=== PATIENT | female | born 1985 | race Caucasian/White ===

== ENCOUNTER 2019-09-15 13:22 | Emergency (ER) | payer BC ==
[~2019-09-15] VITALS: Ht 175.3 cm; Wt 131.1 kg
[2019-09-15 14:12] LABS: BASOPHILS # (AUTO) 0.1 X10'3 (0-0.2); BASOPHILS % (AUTO) 0.8 % (0-1); EOSINOPHILS # (AUTO) 0.2 X10'3 (0-0.9); EOSINOPHILS % (AUTO) 1.6 % (0-6); HEMATOCRIT 37.7 % (35.0-45.0); HEMOGLOBIN 12.4 g/dl (12.0-16.0); LYMPHOCYTES # (AUTO) 3.1 X10'3 (1.1-4.8); LYMPHOCYTES % (AUTO) 29.4 % (21-51); MEAN CORPUSCULAR HEMOGLOBIN 26.4 PG (27.0-31.0); MEAN CORPUSCULAR VOLUME 79.9 FL (78-98); MEAN PLATELET VOLUME 8.1 FL (7.4-10.4); MONOCYTES # (AUTO) 0.5 X10'3 (0-0.9); MONOCYTES % (AUTO) 5.1 % (2-12); NEUTROPHILS # (AUTO) 6.6 X10'3 (1.8-7.7); NEUTROPHILS % (AUTO) 63.1 % (42-75); PLATELET COUNT 386 X10'3 (140-440); RED BLOOD COUNT 4.72 X10'6 (4.20-5.60); RED CELL DISTRIBUTION WIDTH 15.9 % (11.5-14.5); WHITE BLOOD COUNT 10.5 X10'3 (4.5-11.0)
[2019-09-15 14:13] LABS: URINE HCG NEGATIVE (NEG)
[2019-09-15 14:14] LABS: CLARITY,URINE SLIGHTLY CLOUDY (Clear); COLOR,URINE YELLOW (Yellow); GLUCOSE, URINE NEGATIVE (Neg); KETONES,URINE 15 mg/dl (Neg); LEUKOCYTE ESTERASE ,URINE NEGATIVE (Neg); NITRITES, URINE POSITIVE (Neg); OCCULT BLOOD,URINE SMALL (Neg); PROTEIN,URINE NEGATIVE (Neg); UROBILINOGEN,URINE 0.2 E.U/dL (0.2-1.0)
[2019-09-15] MEDS ORDERED: hydrOXYzine 25 MG tablet PO ONE (14:15)
[2019-09-15 14:19] LABS: ALANINE AMINOTRANSFERASE 63 U/L (12-78); ALBUMIN 3.7 G/DL (3.4-5.0); ALBUMIN/GLOBULIN RATIO 0.8 (1.1-1.5); ALKALINE PHOSPHATASE 88 IU/L (46-116); ANION GAP 11 (8-16); ASPARTATE AMINO TRANSFERASE 40 U/L (10-37); BILIRUBIN,TOTAL 0.4 MG/DL (0.1-1.0); BLOOD UREA NITROGEN 14 MG/DL (7-18); BUN/CREATININE RATIO 22.6 (6.6-38.0); CALCIUM 9.2 MG/DL (8.5-10.1); CHLORIDE 101 MMOL/L (99-107); CREATININE 0.62 MG/DL (0.40-0.90); GLUCOSE 124 MG/DL (70-104); POTASSIUM 3.5 MMOL/L (3.5-5.1); SODIUM 137 MMOL/L (135-145); TOTAL CARBON DIOXIDE 24.7 MMOL/L (24-32); TOTAL PROTEIN 8.3 G/DL (6.4-8.2); eGFR > 90 ML/MIN
[2019-09-15 14:22] LABS: URINE AMPHETAMINE SCREEN NEGATIVE (Neg); URINE BARBITUATE SCREEN NEGATIVE (Neg); URINE BENZODIAZEPINES SCREEN NEGATIVE (Neg); URINE CANNABINOID SCREEN NEGATIVE (Neg); URINE COCAINE SCREEN NEGATIVE (Neg); URINE METHADONE SCREEN NEGATIVE (Neg); URINE OPIATE SCREEN NEGATIVE (Neg); URINE PHENCYCLIDINE SCREEN NEGATIVE (Neg)
[2019-09-15 14:26] LABS: UA COLLECTION TYPE CLN CATCH MIDSTREAM
[2019-09-15 14:27] LABS: RBC,URINE 0-2 /HPF (0-2)
[2019-09-15 14:28] LABS: BACTERIA,URINE 3+ /HPF (Neg); MUCUS STRANDS FEW /LPF (Neg); SQUAMOUS EPITHELIAL CELL,UR MANY /LPF (FEW)
[2019-09-15 14:29] LABS: ETHANOL < 0.010 GM/DL (0.0-0.010)
[2019-09-15] MEDS ORDERED: RAME8TAB24 PO (15:37)
[2019-09-15] MEDS ORDERED: BUSP10TA11 PO (15:37)
[2019-09-15] MEDS ORDERED: LAMO25TA4 PO (15:37)
[2019-09-15] MEDS ORDERED: ONDA4TAB12 PO (15:37)
[2019-09-15] MEDS: cephalexin 250mg capsule PO SCH ×3 (15:43→20:08)
--- NOTE | 2019-09-15 15:47 | NUR ---
breaking primary RN, pt is supine in bed, eyes closed, appears to be sleeping, no anxiety observed
[2019-09-15] MEDS ORDERED: ondansetron 4mg rapidly disintigrating tab PO PRN (16:10)
--- NOTE | 2019-09-15 16:10 | NUR ---
Patient sleeping supine. No distress observed. Continue to monitor.
[2019-09-15] MEDS ORDERED: SYN0.088T PO (18:17)
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
[2019-09-15] MEDS: lamoTRIgine 25mg tablet PO SCH ×2 (20:09→21:00)
[2019-09-15] MEDS: busPIRone 5mg tablet PO SCH (20:09)
[2019-09-15] MEDS ORDERED: RAMELTEON PO SCH (21:00)
--- NOTE | 2019-09-15 21:48 | NUR ---
Pt. sleeping in bed on her back. Pt states that she takes Cymbalta 30mg at bedtime. Spoke to Dr. Chan and he wants to continue this medication for the patient. Pt appears to be in no distress at the moment. Will continue to monitor.
[2019-09-15] MEDS ORDERED: duloxetine 20mg capsule.DR PO SCH (21:50)
[2019-09-15] MEDS ORDERED: duloxetine 30mg CAPSULE.DR PO SCH (21:58)
--- NOTE | 2019-09-15 23:56 | NUR ---
Pt continues to sleep. Laying on her right side. Appears to be in no distress. Will continue to monitor.
--- NOTE | 2019-09-16 04:09 | NUR ---
Packet sent to [facility]
--- NOTE | 2019-09-16 04:58 | NUR ---
Pt ambulates to bathroom safely. Currently laying in bed. Appears to be in no distress. Will continue to monitor.
[2019-09-16 05:57] VITALS: BP 131/64
--- NOTE | 2019-09-16 06:17 | NUR ---
Patient is asleep, no S/S of distress.
[2019-09-16] MEDS ORDERED: levoTHYROXINE 88mcg tablet PO SCH (07:00)
--- NOTE | 2019-09-16 07:04 | NUR ---
Asleep in bed.
--- NOTE | 2019-09-16 08:00 | NUR ---
Resting in bed eating breakfast
[2019-09-16] MEDS: cephalexin 250mg capsule PO SCH ×2 (08:52→13:10)
[2019-09-16] MEDS: busPIRone 5mg tablet PO SCH (08:52)
--- NOTE | 2019-09-16 09:00 | NUR ---
REsting in bed
--- NOTE | 2019-09-16 10:00 | NUR ---
Resting in bed
--- NOTE | 2019-09-16 11:00 | NUR ---
Resting in bed
--- NOTE | 2019-09-16 12:00 | NUR ---
Resting in bed
--- NOTE | 2019-09-16 13:00 | NUR ---
Resting in bed
--- NOTE | 2019-09-16 14:00 | NUR ---
Resting in bed
--- NOTE | 2019-09-16 14:42 | NUR ---
Suicidal ideation, transfering to care of [facility] tech, no distress observed all personal item inventored and transferred with patient to unit. Paper signed, questions were answered, patient denies needs at this timem understanding was vberbalized.
[2019-09-16] MEDS ORDERED: DULO-31 PO (16:36)
[2019-09-17] MEDS ORDERED: CEPH250T PO (07:02)
== END 2019-09-16 14:45 | disposition home or self-care (01) ==
LOC: ER 13:23
DX: F32.9 Major depressive disorder, single episode, unspecified (principal); N39.0 Urinary tract infection, site not specified; F41.9 Anxiety disorder, unspecified; Z88.5 Allergy status to narcotic agent; Z91.013 Allergy to seafood; Z79.899 Other long term (current) drug therapy
CPT/HCPCS: 36415; 80053; 80305; 80320; 81001; 81025; 84443; 85025; 99285; Z7610

== ENCOUNTER 2019-09-16 12:45 | Inpatient (IN) | payer BC ==
[~2019-09-16] VITALS: Ht 177.8 cm; Wt 132.0 kg
[~2019-09-16 12:45] MED LIST: BUSP10TA11 PO; LAMO25TA4 PO; ONDA4TAB12 PO; RAME8TAB24 PO; SYN0.088T PO
[2019-09-16] MEDS ORDERED: LORazepam 1 MG tablet PO PRN (15:00)
[2019-09-16] MEDS ORDERED: loperamide 2mg capsule PO PRN (15:00)
[2019-09-16] MEDS ORDERED: acetaminophen 325mg tablet PO PRN ×2 (15:00)
[2019-09-16] MEDS ORDERED: mag hydrox/Alum hydrox/simeth 30ml oral suspension PO PRN (15:00)
[2019-09-16] MEDS ORDERED: magnesium hydroxide 30ml (MOM) UD suspension PO PRN (15:00)
[2019-09-16 15:49] VITALS: BP 155/99
[2019-09-16] MEDS ORDERED: DULO-31 PO (16:36)
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
[2019-09-16] MEDS ORDERED: ondansetron 4mg rapidly disintigrating tab PO PRN (17:15)
[2019-09-16 20:00] VITALS: BP 143/91
[2019-09-16] MEDS: busPIRone 5mg tablet PO SCH (20:26)
[2019-09-16] MEDS: zolpidem 5mg tablet PO SCH (20:27)
[2019-09-16] MEDS: lamoTRIgine 25mg tablet PO SCH (20:27)
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
[2019-09-17 06:58] LABS: CHOL/HDL RATIO 5.1 (0.00-4.99); CHOLESTEROL 192 MG/DL (0-200); HDL CHOLESTEROL 38 MG/DL (35-60); LDL CHOLESTEROL 138 MG/DL (50-100); TRIGLYCERIDES 144 MG/DL (20-135)
[2019-09-17 07:02] LABS: HEMOGLOBIN A1C 6.4 % (4.5-6.2)
[2019-09-17] MEDS ORDERED: CEPH250T PO (07:02)
[2019-09-17] MEDS: busPIRone 5mg tablet PO SCH ×2 (07:31→20:24)
[2019-09-17] MEDS: levoTHYROXINE 88mcg tablet PO SCH (07:31)
[2019-09-17] MEDS: duloxetine 30mg CAPSULE.DR PO SCH (07:32)
[2019-09-17 08:05] VITALS: BP 157/100
[2019-09-17] MEDS: cephalexin 250mg capsule PO SCH ×3 (08:36→20:25)
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
[2019-09-17 19:35] VITALS: BP 135/95
[2019-09-17] MEDS: lamoTRIgine 25mg tablet PO SCH (20:24)
[2019-09-17] MEDS: zolpidem 5mg tablet PO SCH (20:25)
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
[2019-09-18] MEDS: cephalexin 250mg capsule PO SCH ×4 (01:45→20:35)
[2019-09-18] MEDS: busPIRone 5mg tablet PO SCH ×2 (07:27→20:35)
[2019-09-18] MEDS: levoTHYROXINE 88mcg tablet PO SCH (07:27)
[2019-09-18] MEDS: duloxetine 30mg CAPSULE.DR PO SCH (07:28)
[2019-09-18 08:00] VITALS: BP 136/84
[2019-09-18] MEDS: hydrOXYzine 25 MG tablet PO PRN (10:07)
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
[2019-09-18 19:30] VITALS: BP 137/90
[2019-09-18] MEDS: zolpidem 5mg tablet PO SCH (20:35)
[2019-09-18] MEDS: lithium carbonate 150mg capsule PO SCH (20:35)
[2019-09-18] MEDS: lamoTRIgine 25mg tablet PO SCH (20:35)
[2019-09-19] MEDS: cephalexin 250mg capsule PO SCH ×4 (03:08→20:18)
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
[2019-09-19] MEDS: levoTHYROXINE 88mcg tablet PO SCH (07:27)
[2019-09-19 08:00] VITALS: BP 151/92
[2019-09-19] MEDS: duloxetine 30mg CAPSULE.DR PO SCH (08:30)
[2019-09-19] MEDS: busPIRone 5mg tablet PO SCH ×2 (08:30→20:17)
[2019-09-19 09:40] VITALS: BP 140/92
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
[2019-09-19 19:46] VITALS: BP 161/106
[2019-09-19] MEDS: lamoTRIgine 25mg tablet PO SCH (20:18)
[2019-09-19] MEDS: propranolol 10mg tablet PO SCH (20:18)
[2019-09-19] MEDS: zolpidem 5mg tablet PO SCH (20:19)
[2019-09-19] MEDS: lithium carbonate 150mg capsule PO SCH (20:20)
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
[2019-09-20] MEDS: cephalexin 250mg capsule PO SCH ×4 (02:00→20:21)
[2019-09-20] MEDS: hydrOXYzine 25 MG tablet PO PRN ×2 (03:14→22:03)
[2019-09-20 08:00] VITALS: BP 124/72
[2019-09-20] MEDS: propranolol 10mg tablet PO SCH ×2 (08:06→20:21)
[2019-09-20] MEDS: levoTHYROXINE 88mcg tablet PO SCH (08:06)
[2019-09-20] MEDS: duloxetine 30mg CAPSULE.DR PO SCH (08:06)
[2019-09-20] MEDS: busPIRone 5mg tablet PO SCH ×2 (08:06→20:20)
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
[2019-09-20 20:00] VITALS: BP 133/82
[2019-09-20] MEDS: lamoTRIgine 25mg tablet PO SCH (20:20)
[2019-09-20] MEDS: zolpidem 5mg tablet PO SCH (20:21)
[2019-09-20] MEDS: lithium carbonate 150mg capsule PO SCH (20:23)
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
[2019-09-21] MEDS: cephalexin 250mg capsule PO SCH ×4 (02:33→20:23)
[2019-09-21] MEDS: levoTHYROXINE 88mcg tablet PO SCH (07:28)
[2019-09-21 07:34] VITALS: BP 134/84
[2019-09-21] MEDS: propranolol 10mg tablet PO SCH ×2 (08:28→20:23)
[2019-09-21] MEDS: duloxetine 30mg CAPSULE.DR PO SCH (08:28)
[2019-09-21] MEDS: busPIRone 5mg tablet PO SCH ×3 (08:29→20:25)
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
--- NOTE | 2019-09-21 16:56 | NUR ---
Initial: Pt admitted for suicidal ideation. Pt has hx of prediabetes, previously took metformin but stopped due to dizziness. Pt has been receiving Accu-checks q.a.c and at bedtime, BG 84-154. Will continue to monitor BG.Pt on regular diet, PO 75-100% meeting nutrient needs. LBM 09/21. No nutrition diagnosis at this time. Will continue to monitor. Recommendation: 1. continue regular diet 2. if BG trends upward, consider carb controlled diet per MD 3. bowel care as needed 4. weight per rx Addendum: 09/21/19 at 1656 by Wing Christina TINSLEY Amended: Links added. Addendum: 09/21/19 at [address] LAUREANO Approves
[2019-09-21 20:00] VITALS: BP 123/64
[2019-09-21] MEDS: zolpidem 5mg tablet PO SCH (20:26)
[2019-09-21] MEDS: lithium carbonate 150mg capsule PO SCH (20:26)
[2019-09-21] MEDS ORDERED: lamoTRIgine 25mg tablet PO SCH (21:00)
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
[2019-09-22] MEDS: cephalexin 250mg capsule PO SCH ×2 (02:08→08:12)
[2019-09-22] MEDS: levoTHYROXINE 88mcg tablet PO SCH (06:54)
[2019-09-22 08:00] VITALS: BP 143/95
[2019-09-22] MEDS: propranolol 10mg tablet PO SCH (08:12)
[2019-09-22] MEDS: duloxetine 30mg CAPSULE.DR PO SCH (08:12)
[2019-09-22] MEDS: busPIRone 5mg tablet PO SCH ×2 (08:12→12:39)
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
[2019-09-22] MEDS ORDERED: LITH150C8 PO (14:00)
[2019-09-22] MEDS ORDERED: CEPH250T PO (14:00)
[2019-09-22] MEDS ORDERED: PROP10TA10 PO (14:00)
[2019-09-22] MEDS ORDERED: BUSP5TAB26 PO (14:00)
[2019-09-22] MEDS ORDERED: HYDR-3686 PO (14:00)
[2019-09-22] MEDS ORDERED: DULO30CA52 PO (14:00)
[2019-09-22] MEDS ORDERED: LAMO25TA5 PO (14:00)
--- NOTE | 2019-09-22 15:06 | NUR ---
Discharge Planning: Pt's doing well and appears to be at baseline functioning. SS met w/pt & engaged her in dcp activities. Per session, pt request verification of hospitalization for employer & agreed to allow SS to contact her outpt provider to coordinate f/u appointment. SS had t/c with [facility], left vm with Dr. Velasquez's RN to contact pt and schedule f/u with pt. SS drafted verification of hospital admission & discharge verification, reviewed it w/pt, pt approved content & SS faxed to pt's employer per pt's request. Elissa Nicholson LCSW Addendum: 09/22/19 at 1516 by Elissa Nicholson Amended: Links added.
--- NOTE | 2019-09-22 15:47 | NUR ---
SS received rt p/c from [facility] w/f/u outpatient psych appt for pt. Pt is scheduled to see her outpt psych provider tomorrow @ 09/23 @ 2:15pm. Pt informed and received written verification of appointment. Plan: Pt's d/c-ing SS referral closed. Addendum: 09/22/19 at 1550 by Elissa Nicholson SS Amended: Links added.
--- NOTE | 2019-09-22 16:56 | NUR ---
Nursing Discharge Note Patient is discharged at 1535 and escorted off the unit by Ruben Brewer. Patient is ambulatory and will drive her own car to her house. Follow up instructions are gone over with patient and patient is provided the opportunity to ask questions. Patient verbalizes understanding of information provided. Patient has improved since admit, patient is not reporting thoughts to harm herself or others. Nicotine replacement is not offered because patient is a non-smoker.
== END 2019-09-22 15:35 | disposition home or self-care (01) | DRG 885 ==
LOC: ADULT MH 12:45
PROVIDERS: ADMIT Psychiatry & Neurology Psychiatry; ATTEND Psychiatry & Neurology Psychiatry
DX: F33.2 Major depressive disorder, recurrent severe without psychotic features (principal); R45.851 Suicidal ideations; E11.9 Type 2 diabetes mellitus without complications; E03.9 Hypothyroidism, unspecified; F41.0 Panic disorder [episodic paroxysmal anxiety]; F43.10 Post-traumatic stress disorder, unspecified; Z79.890 Hormone replacement therapy; Z79.899 Other long term (current) drug therapy; Z83.3 Family history of diabetes mellitus; Z91.5 Personal history of self-harm; Z90.49 Acquired absence of other specified parts of digestive tract; Z88.5 Allergy status to narcotic agent
CPT/HCPCS: 36415; 80061; 82948; 83036; 84443; 87081; Z7610

== ENCOUNTER 2020-05-14 12:35 | Emergency (ER) | payer BC ==
[~2020-05-14] VITALS: Ht 177.8 cm; Wt 134.6 kg
[~2020-05-14 12:35] MED LIST changes: -BUSP10TA11 PO; +BUSP5TAB26 PO; +CEPH250T PO; +DULO30CA52 PO; +HYDR-3686 PO; -LAMO25TA4 PO; +LAMO25TA5 PO; +LITH150C8 PO; +PROP10TA10 PO
[2020-05-14 12:38] VITALS: BP 151/91
[2020-05-14 13:21] LABS: CLARITY,URINE CLEAR (Clear); COLOR,URINE STRAW (Yellow); GLUCOSE, URINE NEGATIVE (Neg); KETONES,URINE NEGATIVE (Neg); LEUKOCYTE ESTERASE ,URINE NEGATIVE (Neg); NITRITES, URINE NEGATIVE (Neg); OCCULT BLOOD,URINE NEGATIVE (Neg); PROTEIN,URINE NEGATIVE (Neg); URINE HCG NEGATIVE (NEG); UROBILINOGEN,URINE 0.2 E.U/dL (0.2-1.0)
[2020-05-14 13:22] LABS: UA COLLECTION TYPE CLN CATCH MIDSTREAM
[2020-05-14 13:23] LABS: BASOPHILS # (AUTO) 0.1 X10'3 (0-0.2); BASOPHILS % (AUTO) 0.6 % (0-1); EOSINOPHILS # (AUTO) 0.4 X10'3 (0-0.9); EOSINOPHILS % (AUTO) 3.5 % (0-6); HEMATOCRIT 37.6 % (35.0-45.0); HEMOGLOBIN 12.2 g/dl (12.0-16.0); LYMPHOCYTES # (AUTO) 2.5 X10'3 (1.1-4.8); LYMPHOCYTES % (AUTO) 23.2 % (21-51); MEAN CORPUSCULAR HEMOGLOBIN 26.2 PG (27.0-31.0); MEAN CORPUSCULAR HGB CONC 32.4 g/dL (33.0-36.5); MEAN CORPUSCULAR VOLUME 80.7 FL (78-98); MEAN PLATELET VOLUME 7.9 FL (7.4-10.4); MONOCYTES # (AUTO) 0.5 X10'3 (0-0.9); MONOCYTES % (AUTO) 4.6 % (2-12); NEUTROPHILS # (AUTO) 7.3 X10'3 (1.8-7.7); NEUTROPHILS % (AUTO) 68.1 % (42-75); PLATELET COUNT 345 X10'3 (140-440); RED BLOOD COUNT 4.65 X10'6 (4.20-5.60); WHITE BLOOD COUNT 10.8 X10'3 (4.5-11.0)
[2020-05-14 13:34] LABS: URINE AMPHETAMINE SCREEN NEGATIVE (Neg); URINE BARBITUATE SCREEN NEGATIVE (Neg); URINE BENZODIAZEPINES SCREEN NEGATIVE (Neg); URINE CANNABINOID SCREEN NEGATIVE (Neg); URINE COCAINE SCREEN NEGATIVE (Neg); URINE METHADONE SCREEN NEGATIVE (Neg); URINE OPIATE SCREEN NEGATIVE (Neg); URINE PHENCYCLIDINE SCREEN NEGATIVE (Neg)
[2020-05-14 13:42] LABS: ALANINE AMINOTRANSFERASE 55 U/L (12-78); ALBUMIN 3.5 G/DL (3.4-5.0); ALBUMIN/GLOBULIN RATIO 0.9 (1.1-1.5); ALKALINE PHOSPHATASE 73 IU/L (46-116); ANION GAP 9 (8-16); ASPARTATE AMINO TRANSFERASE 42 U/L (10-37); BILIRUBIN,TOTAL 0.3 MG/DL (0.1-1.0); BLOOD UREA NITROGEN 7 MG/DL (7-18); BUN/CREATININE RATIO 10.6 (6.6-38.0); CALCIUM 8.8 MG/DL (8.5-10.1); CHLORIDE 103 MMOL/L (99-107); CREATININE 0.66 MG/DL (0.40-0.90); GLUCOSE 134 MG/DL (70-104); POTASSIUM 3.6 MMOL/L (3.5-5.1); SODIUM 137 MMOL/L (135-145); TOTAL CARBON DIOXIDE 25.1 MMOL/L (24-32); TOTAL PROTEIN 7.2 G/DL (6.4-8.2); eGFR > 90 ML/MIN
[2020-05-14 13:56] LABS: ETHANOL < 0.010 GM/DL (0.0-0.010)
== END 2020-05-14 14:04 | disposition home or self-care (01) ==
LOC: ER 12:35
DX: F31.9 Bipolar disorder, unspecified (principal); F41.9 Anxiety disorder, unspecified; Z91.013 Allergy to seafood; Z88.5 Allergy status to narcotic agent; Z79.2 Long term (current) use of antibiotics; Z79.899 Other long term (current) drug therapy
CPT/HCPCS: 36415; 80053; 80178; 80305; 80320; 81003; 81025; 84443; 85025; 99283

== ENCOUNTER 2020-07-10 17:31 | Emergency (ER) | payer BC ==
[~2020-07-10] VITALS: Ht 177.8 cm; Wt 125.9 kg
[2020-07-10 18:49] LABS: URINE HCG NEGATIVE (NEG)
[2020-07-10 19:00] LABS: URINE AMPHETAMINE SCREEN NEGATIVE (Neg); URINE BARBITUATE SCREEN NEGATIVE (Neg); URINE BENZODIAZEPINES SCREEN NEGATIVE (Neg); URINE CANNABINOID SCREEN NEGATIVE (Neg); URINE COCAINE SCREEN NEGATIVE (Neg); URINE METHADONE SCREEN NEGATIVE (Neg); URINE OPIATE SCREEN POSITIVE (Neg); URINE PHENCYCLIDINE SCREEN NEGATIVE (Neg)
[2020-07-10 19:06] LABS: BASOPHILS # (AUTO) 0.2 X10'3 (0-0.2); EOSINOPHILS # (AUTO) 0.2 X10'3 (0-0.9); EOSINOPHILS % (AUTO) 1.3 % (0-6); HEMATOCRIT 40.3 % (35.0-45.0); HEMOGLOBIN 13.3 g/dl (12.0-16.0); LYMPHOCYTES # (AUTO) 4.2 X10'3 (1.1-4.8); LYMPHOCYTES % (AUTO) 26.4 % (21-51); MEAN CORPUSCULAR HEMOGLOBIN 27.1 PG (27.0-31.0); MEAN CORPUSCULAR HGB CONC 32.9 g/dL (33.0-36.5); MEAN CORPUSCULAR VOLUME 82.4 FL (78-98); MEAN PLATELET VOLUME 7.6 FL (7.4-10.4); MONOCYTES # (AUTO) 0.8 X10'3 (0-0.9); MONOCYTES % (AUTO) 5.1 % (2-12); NEUTROPHILS # (AUTO) 10.5 X10'3 (1.8-7.7); NEUTROPHILS % (AUTO) 66.2 % (42-75); PLATELET COUNT 407 X10'3 (140-440); RED BLOOD COUNT 4.89 X10'6 (4.20-5.60); RED CELL DISTRIBUTION WIDTH 16.4 % (11.5-14.5); WHITE BLOOD COUNT 15.9 X10'3 (4.5-11.0)
[2020-07-10 19:19] LABS: ALANINE AMINOTRANSFERASE 53 U/L (12-78); ALBUMIN 4.4 G/DL (3.4-5.0); ALBUMIN/GLOBULIN RATIO 1.1 (1.1-1.5); ALKALINE PHOSPHATASE 98 IU/L (46-116); ANION GAP 11 (8-16); ASPARTATE AMINO TRANSFERASE 33 U/L (10-37); BILIRUBIN,TOTAL 0.6 MG/DL (0.1-1.0); BLOOD UREA NITROGEN 12 MG/DL (7-18); BUN/CREATININE RATIO 18.2 (6.6-38.0); CALCIUM 9.8 MG/DL (8.5-10.1); CHLORIDE 99 MMOL/L (99-107); CREATININE 0.66 MG/DL (0.40-0.90); GLUCOSE 114 MG/DL (70-104); POTASSIUM 3.4 MMOL/L (3.5-5.1); SODIUM 138 MMOL/L (135-145); TOTAL CARBON DIOXIDE 27.6 MMOL/L (24-32); TOTAL PROTEIN 8.5 G/DL (6.4-8.2); eGFR > 90 ML/MIN
[2020-07-10 19:21] LABS: ACETAMINOPHEN < 2.0 UG/ML (10-30); ETHANOL < 0.010 GM/DL (0.0-0.010)
[2020-07-10] MEDS ORDERED: LITH450T2 PO (19:52)
[2020-07-10] MEDS ORDERED: SYN0.088T PO (19:57)
[2020-07-10] MEDS ORDERED: LEVO125T PO (20:11)
[2020-07-10] MEDS ORDERED: HYDR-3686 PO (20:11)
[2020-07-10] MEDS ORDERED: BUS15T PO (20:11)
[2020-07-10] MEDS ORDERED: LAMO100T2 PO (20:11)
[2020-07-10] MEDS ORDERED: PROP20TA6 PO (20:15)
[2020-07-10] MEDS ORDERED: LIT300C PO ×2 (20:15)
[2020-07-10] MEDS ORDERED: hydrOXYzine 25 MG tablet PO PRN (20:35)
[2020-07-10] MEDS ORDERED: lithium carbonate 300mg SR tablet (LithoBID) PO SCH (21:00)
[2020-07-10] MEDS ORDERED: lamoTRIgine 25mg tablet PO SCH (21:00)
--- NOTE | 2020-07-10 21:27 | NUR ---
Pt on unit at start of shift. She is A+Ox4 calm and cooperative. Staff took her keys out to her cousin Girish in the Hospital waiting room. Med rec complete pt took HS meds. lying in bed quetly at this time.
[2020-07-10] MEDS: busPIRone 15mg tablet PO SCH (21:33)
--- NOTE | 2020-07-11 00:21 | NUR ---
pt resting in bed on back. no s/s of distress or pain. will continue to monitor.
--- NOTE | 2020-07-11 03:02 | NUR ---
Packet faxed to [facility].
--- NOTE | 2020-07-11 05:14 | NUR ---
Pt sleeping resp even and unlabored.
[2020-07-11 05:48] VITALS: BP 128/78
[2020-07-11] MEDS ORDERED: lithium carbonate 300mg SR tablet (LithoBID) PO SCH (08:00)
[2020-07-11] MEDS ORDERED: levoTHYROXINE 125mcg tablet PO SCH (08:00)
[2020-07-11] MEDS ORDERED: propranolol 10mg tablet PO SCH (08:00)
--- NOTE | 2020-07-11 08:29 | NUR ---
BREAKFAST TRAY AT BEDSIDE. PT SITTING UP EATING, NOW FINISHED.
[2020-07-11] MEDS: busPIRone 15mg tablet PO SCH ×2 (08:40→13:00)
--- NOTE | 2020-07-11 09:30 | NUR ---
[facility] CLINICIAN AT BEDSIDE TO EVAL PT.
--- NOTE | 2020-07-11 11:45 | NUR ---
RECVD REPORT FROM WILLIAM MARISCAL PT IS SUPINE IN BED, CALM, I INTRODUCED MYSELF, NO NEEDS AT THIS TIME
--- NOTE | 2020-07-11 12:24 | NUR ---
PT IS SUPINE IN BED, EYES CLOSED, CALM, REGULAR BREATHING PRESENT
--- NOTE | 2020-07-11 13:02 | NUR ---
pt is sitting up in bed, calmly eating lunch, accepted medication with no difficulty, awaiting CB to come down and get her sometime after lunch
--- NOTE | 2020-07-11 13:53 | NUR ---
pt is supine in bed, eyes open, no agitation, no needs at this time
--- NOTE | 2020-07-11 14:01 | NUR ---
Heath from [facility] called to let me know that they are accepting pt, they will be down in 30 mins to an hour to get her
--- NOTE | 2020-07-11 15:04 | NUR ---
pt is supine in bed, calm, awake, no needs at this time
[2020-07-11] MEDS ORDERED: NABU500T2 PO (19:40)
[2020-07-11] MEDS ORDERED: VENL37.55 PO (19:40)
[2020-07-11] MEDS ORDERED: LAMO100T2 PO (19:40)
[2020-07-11] MEDS ORDERED: ATOR20TA PO (19:40)
[2020-07-11] MEDS ORDERED: VENL150C2 PO (19:40)
== END 2020-07-11 16:06 ==
LOC: ER 17:32
DX: R45.851 Suicidal ideations (principal); F41.9 Anxiety disorder, unspecified; Z79.899 Other long term (current) drug therapy; Z88.5 Allergy status to narcotic agent; Z91.013 Allergy to seafood
CPT/HCPCS: 36415; 80053; 80178; 80305; 80320; 80329; 81025; 85025; 93005; 99285

== ENCOUNTER 2020-07-11 11:16 | Inpatient (IN) | payer BC ==
[~2020-07-11] VITALS: Ht 177.8 cm; Wt 127.3 kg
[~2020-07-11 11:16] MED LIST changes: +BUS15T PO; -BUSP5TAB26 PO; -CEPH250T PO; -DULO30CA52 PO; +LAMO100T2 PO; -LAMO25TA5 PO; +LEVO125T PO; +LIT300C PO; -LITH150C8 PO; -ONDA4TAB12 PO; -PROP10TA10 PO; +PROP20TA6 PO; -RAME8TAB24 PO; -SYN0.088T PO
[2020-07-11] MEDS ORDERED: traZODone 50mg tablet PO PRN (16:50)
[2020-07-11] MEDS ORDERED: acetaminophen 325mg tablet PO PRN ×2 (16:50)
[2020-07-11] MEDS ORDERED: loperamide 2mg capsule PO PRN (16:50)
[2020-07-11] MEDS ORDERED: magnesium hydroxide 30ml (MOM) UD suspension PO PRN (16:50)
[2020-07-11 17:48] VITALS: BP 121/82
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
[2020-07-11] MEDS ORDERED: LAMO100T2 PO (19:40)
[2020-07-11] MEDS ORDERED: VENL150C2 PO (19:40)
[2020-07-11] MEDS ORDERED: VENL37.55 PO (19:40)
[2020-07-11] MEDS ORDERED: ATOR20TA PO (19:40)
[2020-07-11] MEDS ORDERED: NABU-134 PO (19:40)
[2020-07-11] MEDS ORDERED: hydrOXYzine 25 MG tablet PO PRN (19:55)
[2020-07-11] MEDS: lamoTRIgine 100mg tablet PO SCH (20:13)
[2020-07-11] MEDS: atorvastatin 20mg tablet PO SCH (20:13)
[2020-07-11] MEDS: busPIRone 15mg tablet PO SCH (20:13)
[2020-07-11] MEDS: lithium carbonate 300mg SR tablet (LithoBID) PO SCH (20:13)
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
[2020-07-12 08:00] VITALS: BP 131/91
[2020-07-12] MEDS ORDERED: venlafaxine XR 75mg capsule (Q24H) PO SCH (08:00)
[2020-07-12] MEDS ORDERED: non-formulary drug (Venlafaxine HCl (Effexor Xr) 1 CAP) PO SCH (08:00)
[2020-07-12] MEDS: propranolol 40mg tablet PO SCH ×2 (08:00→20:34)
[2020-07-12 08:15] LABS: HEMOGLOBIN A1C 6.5 % (4.5-6.2)
[2020-07-12 08:18] LABS: CHOL/HDL RATIO 4.4 (0.00-4.99); CHOLESTEROL 188 MG/DL (0-200); HDL CHOLESTEROL 43 MG/DL (35-60); LDL CHOLESTEROL 127 MG/DL (50-100); TRIGLYCERIDES 134 MG/DL (20-135)
[2020-07-12] MEDS: busPIRone 15mg tablet PO SCH ×3 (09:12→20:34)
[2020-07-12] MEDS: lithium carbonate 300mg SR tablet (LithoBID) PO SCH ×2 (09:13→20:35)
[2020-07-12] MEDS: levoTHYROXINE 125mcg tablet PO SCH (09:14)
--- NOTE | 2020-07-12 09:46 | NUR ---
Malnutrition consult re: "rapid wt loss". Pt reports 14-23 lb wt loss per malnutrition risk screen with RN. Current scaled weight is 188% IBW and -3.5 kg since last documented scaled weight in August of last year. This is non-significant wt loss of 2.6% in 10 months. Pt currently on a CHO controlled diet documented with 100% PO intake first meal. No documented edema or decrease in muscle strength. Pt currently lacks a minimum of two criteria for malnutrition. Will continue to follow. Addendum: 07/12/20 at [address] Amended: Links added.
--- NOTE | 2020-07-12 10:00 | NUR ---
Group Therapy: Process Group This Clinicians goal for this process group were as follows: (1) Share psychoeducation about core beliefs and how these beliefs shapes how one views reality. (2) Compare and contrast how people with different core beliefs might interpret an identical situation differently. (3) Discuss how changing negative core beliefs to more balanced, helpful, and rational alternatives can lead to improved behaviors and mood. (4) Process Clients thoughts and reflections on this topic within the group milieu. Patient identified experiencing the following levels of anxiety, depression, and anger/irritability while present in the group milieu (0-low; 10-High). Anxiety: 3/10 Depression: 810 Anger/irritability: 0/10 Patient presented as properly oriented x4 during the process group. Patient was dressed in green hospital scrubs within the milieu. Psychomotor activity was unremarkable. Patient's thought content was clear, and concrete. Patient's thought process was clear, coherent, and linear. This Clinician did not observe Patient responding to any internal stimuli during session. The rate, latency, and tone of Patients speech was within normal limits. Patient maintained regular eye contact with this Clinician. Patient presented in calm euthymic mood, with congruent affect during the process group. Patient presented as open and cooperative, and was verbally engaged and nonobtrusive within the group milieu. During her initial check-in with this Clinician regarding her impression of her anxiety symptoms, she reported experiencing high depression symptoms--8/10 This Clinician asked Patient to describes bodily sensations associated with this level of depression, in addition to any thoughts that she was thinking. Patient reported that she felt, "Numbness," in her body and had been experiencing suicidal thoughts. This Clinician validated Patient for sharing these comments. Patient reported that a negative core belief that she frequently endorsed about herself was that she is, "Unlovable." This Clinician asked Patient to think of a time when she authentically felt loved to refute this belief. Patient said that she could identify such times, but they were, "A long time ago." As a strength that Patient could utilize in attempts to reframe her negative core belief of being unlovable, Patient said that she was, "Fairly intelligent." This Clinician encouraged Patient to utilize her mind to refute "absolute, or [id number] thinking," about being "Unlovable," so as to come up with more balanced/helpful/rational core beliefs about herself. Julian Mcdowell MA, LMFT Addendum: 07/12/20 at 1139 by Julian Mcdowell SS Amended: Links added.
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
[2020-07-12 19:43] VITALS: BP 141/86
[2020-07-12] MEDS: atorvastatin 20mg tablet PO SCH (20:34)
[2020-07-12] MEDS: lamoTRIgine 100mg tablet PO SCH (20:34)
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
[2020-07-13] MEDS: metFORMIN 500mg tablet PO SCH ×2 (08:16→17:29)
[2020-07-13] MEDS: levoTHYROXINE 125mcg tablet PO SCH (08:16)
[2020-07-13] MEDS: propranolol 40mg tablet PO SCH ×2 (08:17→20:33)
[2020-07-13] MEDS: busPIRone 15mg tablet PO SCH ×3 (08:17→20:32)
[2020-07-13] MEDS: lithium carbonate 300mg SR tablet (LithoBID) PO SCH ×2 (08:17→20:34)
[2020-07-13] MEDS: venlafaxine XR 75mg capsule (Q24H) PO SCH (08:26)
[2020-07-13] MEDS: mag hydrox/Alum hydrox/simeth 30ml oral suspension PO PRN (09:21)
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
--- NOTE | 2020-07-13 15:51 | NUR ---
Faxed note to employer stating Ivy is currently in the hospital with unknown discharge date. SEVERO Case
[2020-07-13 19:57] VITALS: BP 133/84
[2020-07-13] MEDS: lamoTRIgine 100mg tablet PO SCH (20:32)
[2020-07-13] MEDS: atorvastatin 20mg tablet PO SCH (20:32)
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
[2020-07-14] MEDS: metFORMIN 500mg tablet PO SCH ×2 (07:30→17:02)
[2020-07-14 07:40] VITALS: BP 135/83
[2020-07-14] MEDS: venlafaxine XR 75mg capsule (Q24H) PO SCH (09:00)
[2020-07-14] MEDS: levoTHYROXINE 125mcg tablet PO SCH (09:00)
[2020-07-14] MEDS: busPIRone 15mg tablet PO SCH ×3 (09:01→20:25)
[2020-07-14] MEDS: propranolol 40mg tablet PO SCH ×2 (09:01→20:25)
[2020-07-14] MEDS: lithium carbonate 300mg SR tablet (LithoBID) PO SCH ×2 (09:01→20:25)
--- NOTE | 2020-07-14 10:00 | NUR ---
Group Therapy: Process Group This Clinicians goal for this process group were as follows: (1) Introduce and provide psychoeducation on Martinez ABC method. (2) Practice working through Martinez ABC method using examples provided by this Clinician. (3) Encourage Patients to process some of their own reoccurring situations utilizing Martinez ABC methodology. (4) Process Clients thoughts and reflections on this topic within the group milieu. Patient identified experiencing the following levels of anxiety, depression, and anger/irritability while present in the group milieu (0-low; 10-High). Anxiety: 4/10 Depression: 8/10 Anger/irritability: 0/10 Patient presented as properly oriented x4 during the process group. Patient was dressed in [facility] scrubs within the milieu. Psychomotor activity was unremarkable. Patient's thought content was clear, and concrete. Patient's thought process was clear, coherent, and linear. This Clinician did not observe Patient responding to any internal stimuli during session. The rate, latency, and tone of Patients speech was within normal limits. Patient maintained regular eye contact with this Clinician. Patient presented in calm euthymic mood, with congruent affect during the process group. Patient presented as cooperative, verbally subdued and nonobtrusive within the group milieu. Patient reported that her depression symptoms were high during her initial check-in with this Clinician. Patient stated that she was still entertaining suicidal thoughts. Due to the acuity of Patient's depression symptoms, this Clinician specifically included the feeling of depression as the activating event during one example of Juan' ABC CBT methodology. He listed feelings/emotional consequences that one would likely experience that would be associated with heightened levels of depression, and then wrote on the white board beliefs that would likely contribute to heightened feelings of depression. He then asked the patients how they would reframe some of these negative/irrational/unhelpful beliefs about depression in order to assist somebody in reducing the acuity of their unwanted emotional consequences. At the end of the process group, this Clinician asked Patient what she had learned from today's group. Patient reported that she was aware of the, "[id number]" nature of thoughts and feelings for a long time. Julian Mcdowell MA, INSECTIC[employer] M[employer]ER Addendum: 07/14/20 at 1131 by Julian Mcdowell SS Amended: Links added.
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
[2020-07-14 19:37] VITALS: BP 142/82
[2020-07-14] MEDS: atorvastatin 20mg tablet PO SCH (20:25)
[2020-07-14] MEDS: lamoTRIgine 100mg tablet PO SCH (20:25)
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
[2020-07-15] MEDS: levoTHYROXINE 125mcg tablet PO SCH (07:55)
[2020-07-15] MEDS: propranolol 40mg tablet PO SCH (07:55)
[2020-07-15] MEDS: venlafaxine XR 75mg capsule (Q24H) PO SCH (07:55)
[2020-07-15] MEDS: metFORMIN 500mg tablet PO SCH ×2 (07:56→17:16)
[2020-07-15] MEDS: lithium carbonate 300mg SR tablet (LithoBID) PO SCH ×2 (07:56→20:46)
[2020-07-15] MEDS: busPIRone 15mg tablet PO SCH ×3 (07:56→20:47)
[2020-07-15 08:00] VITALS: BP 125/73
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
[2020-07-15 20:00] VITALS: BP 136/79
[2020-07-15] MEDS: atorvastatin 20mg tablet PO SCH (20:45)
[2020-07-15] MEDS: propranolol 10mg tablet PO SCH (20:48)
[2020-07-15] MEDS: lamoTRIgine 25mg tablet PO SCH (20:49)
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
[2020-07-16 08:00] VITALS: BP 133/87
[2020-07-16] MEDS ORDERED: sertraline 50mg tablet PO SCH (08:00)
[2020-07-16] MEDS: methylphenidate 5mg tablet PO SCH ×2 (08:38→12:33)
[2020-07-16] MEDS: venlafaxine XR 75mg capsule (Q24H) PO SCH (08:38)
[2020-07-16] MEDS: levoTHYROXINE 125mcg tablet PO SCH (08:38)
[2020-07-16] MEDS: metFORMIN 500mg tablet PO SCH ×2 (08:38→17:05)
[2020-07-16] MEDS: propranolol 10mg tablet PO SCH ×2 (08:38→20:35)
[2020-07-16] MEDS: busPIRone 15mg tablet PO SCH ×2 (08:38→12:32)
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
--- NOTE | 2020-07-16 16:43 | NUR ---
Initial: Pt PO 75-100% avg carb controlled meals meeting needs. LBM 07/14. No nutrition concerns at this time. Will continue to monitor. Rec: 1. continue carb controlled diet 2. routine bowel care 3. wt per rx Addendum: 07/16/20 at [address] Amended: Links added.
[2020-07-16 19:00] VITALS: BP 126/70
[2020-07-16] MEDS: atorvastatin 20mg tablet PO SCH (20:35)
[2020-07-16] MEDS: lamoTRIgine 25mg tablet PO SCH (20:36)
[2020-07-16] MEDS: lithium carbonate 300mg SR tablet (LithoBID) PO SCH (20:37)
[2020-07-16] MEDS: busPIRone 5mg tablet PO SCH (20:37)
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
[2020-07-17] MEDS: metFORMIN 500mg tablet PO SCH ×2 (07:24→17:40)
[2020-07-17] MEDS: propranolol 10mg tablet PO SCH ×2 (07:27→20:12)
[2020-07-17] MEDS: levoTHYROXINE 125mcg tablet PO SCH (07:27)
[2020-07-17] MEDS: busPIRone 5mg tablet PO SCH ×3 (07:27→20:12)
[2020-07-17] MEDS: venlafaxine XR 75mg capsule (Q24H) PO SCH (07:42)
[2020-07-17 08:00] VITALS: BP 116/67
[2020-07-17] MEDS ORDERED: sertraline 25mg tablet PO SCH (08:00)
--- NOTE | 2020-07-17 10:00 | NUR ---
This Clinicians goal for this process group were as follows: (1) Ask scaling questions about patients current anxiety, depression, and irritability symptoms as a check-in (2) Introduce and provide psychoeducation on distress tolerance skills. (2) Introduce the concept of radical acceptance and using our senses to self-soothe. (3) Share the acronym, AWinston.E.P.T.A.N.C.E Activities; Contributing; Comparisons; Emotions; Pushing Away; Thoughts; and Sensations (4) Process Clients thoughts and reflections on this topic within the group milieu. Patient identified experiencing the following levels of anxiety, depression, and anger/irritability while present in the group milieu (0-low; 10-High). Anxiety: 610 Depression: 810 Anger/irritability: 0/10 Patient presented as properly oriented x4 during the process group. Patient was dressed in [facility] scrubs within the milieu. Psychomotor activity was unremarkable. Patient's thought content was clear, and concrete. Patient's thought process was clear, coherent, and linear. This Clinician did not observe Patient responding to any internal stimuli during session. The rate, latency, and tone of Patients speech was within normal limits. Patient maintained regular eye contact with this Clinician. Patient presented in calm euthymic mood, with congruent affect during the process group. Patient presented as open and cooperative, and was verbally engaged and nonobtrusive within the group milieu. Patient was verbally engaged during the process group discussion about radical acceptance, using ones senses to self-soothe, and the ACCEPTS acronym (See above). 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 She also identified that reading was a hobby that she enjoyed that helped her to calm down and self soothe on occasion. Julian Mcdowell MA, [employer] Addendum: 07/17/20 at 1123 by Julian Mcdowell SS Amended: Links added.
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
[2020-07-17 20:00] VITALS: BP 138/84
[2020-07-17] MEDS: lamoTRIgine 25mg tablet PO SCH (20:12)
[2020-07-17] MEDS: atorvastatin 20mg tablet PO SCH (20:12)
[2020-07-17] MEDS: lithium carbonate 300mg SR tablet (LithoBID) PO SCH (20:13)
[2020-07-17 21:07] VITALS: BP 138/84
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
[2020-07-18] MEDS: metFORMIN 500mg tablet PO SCH ×2 (07:50→17:31)
[2020-07-18] MEDS: propranolol 10mg tablet PO SCH ×3 (07:50→20:10)
[2020-07-18] MEDS: venlafaxine XR 75mg capsule (Q24H) PO SCH (07:50)
[2020-07-18] MEDS: busPIRone 5mg tablet PO SCH ×3 (07:50→20:10)
[2020-07-18] MEDS: levoTHYROXINE 125mcg tablet PO SCH (07:50)
[2020-07-18 08:00] VITALS: BP 113/70
[2020-07-18] MEDS: LORazepam 1 MG tablet PO PRN (08:37)
--- NOTE | 2020-07-18 09:08 | NUR ---
[facility] downtime [id number]
[2020-07-18] MEDS ORDERED: voritoxetine HBr tablet 5 MG TABLET PO ONE (10:15)
[2020-07-18 12:58] VITALS: BP 124/88
[2020-07-18] MEDS: mometasone furoate 0.1% ointment 15g TP PRN (15:26)
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
--- NOTE | 2020-07-18 17:26 | NUR ---
Pt's daily accucheck was d/c yesterday. Okay per BI Ch
[2020-07-18] MEDS: lithium carbonate 300mg SR tablet (LithoBID) PO SCH (20:10)
[2020-07-18] MEDS: atorvastatin 20mg tablet PO SCH (20:10)
[2020-07-18] MEDS: lamoTRIgine 25mg tablet PO SCH (20:10)
[2020-07-18 20:23] VITALS: BP 133/84
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
[2020-07-19 08:00] VITALS: BP 129/62
[2020-07-19] MEDS: levoTHYROXINE 125mcg tablet PO SCH (08:07)
[2020-07-19] MEDS: metFORMIN 500mg tablet PO SCH ×2 (08:07→17:32)
[2020-07-19] MEDS: busPIRone 5mg tablet PO SCH ×3 (08:07→20:15)
[2020-07-19] MEDS: voritoxetine HBr tablet 5 MG TABLET PO SCH (08:08)
[2020-07-19] MEDS: propranolol 10mg tablet PO SCH ×3 (08:08→20:15)
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
[2020-07-19] MEDS: lithium carbonate 300mg SR tablet (LithoBID) PO SCH (20:15)
[2020-07-19] MEDS: lamoTRIgine 25mg tablet PO SCH (20:15)
[2020-07-19] MEDS: atorvastatin 20mg tablet PO SCH (20:16)
[2020-07-19 20:21] VITALS: BP 128/77
[2020-07-19] MEDS: mometasone furoate 0.1% ointment 15g TP PRN (20:22)
[2020-07-19] MEDS: LORazepam 1 MG tablet PO PRN (20:30)
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
[2020-07-20] MEDS: propranolol 10mg tablet PO SCH ×3 (07:50→21:13)
[2020-07-20] MEDS: busPIRone 5mg tablet PO SCH ×3 (07:50→21:13)
[2020-07-20] MEDS: voritoxetine HBr tablet 5 MG TABLET PO SCH (07:50)
[2020-07-20] MEDS: levoTHYROXINE 125mcg tablet PO SCH (07:50)
[2020-07-20] MEDS: metFORMIN 500mg tablet PO SCH ×2 (07:50→17:12)
[2020-07-20 08:00] VITALS: BP 123/82
--- NOTE | 2020-07-20 10:00 | NUR ---
Group Therapy: Process Group This Clinicians goals for this process group were as follows: (1) Ask scaling questions about Patients current anxiety, depression, and irritability symptoms as a check-in. (2) Share psychoeducation about emotional escalation as it relates to stress and negative symptoms, Fight, flight, freeze. (2) Provide psychoeducation on the STOPP acronym: Stop, Take a Breath, Observe the situation, Put things into perspective, and, Practice what works. (3) Share psychoeducation on principles of mindfulness and emotional relaxation techniques that Patients may utilize to reduce the acuity of unwanted emotional escalation. (5) Process Clients thoughts and reflections on this topic within the group milieu. Patient identified experiencing the following levels of anxiety, depression, and anger/irritability while present in the group milieu (0-low; 10-High). Anxiety: 01/27 Depression: 03/29 Anger/irritability: 12/27 Patient presented as properly oriented x4 during the process group. Patient was dressed in [facility] scrubs within the milieu. Psychomotor activity was unremarkable. Patient's thought content was clear, and concrete. Patient's thought process was clear, coherent, and linear. This Clinician did not observe Patient responding to any internal stimuli during session. He observed Patient quietly smiling to herself on occasion during the process group, but it is this Clinician's impression that they appropriate responses to attempts that this Clinician made to interject appropriate humor into the process group. The rate, latency, and tone of Patients speech was within normal limits. Patient maintained regular eye contact with this Clinician. Patient presented in calm euthymic mood, with congruent affect during the process group. Patient presented as open and cooperative, and was verbally engaged and nonobtrusive within the group milieu. Patient shared numerous insightful comments that indicated that she understood the focus of the STOPP acronym of emotional deescalation. Patient was able to articulately discuss both thoughts in her mind and sensations that she often experienced in her body that were associated with unwanted episodes of emotional escalation, and was able to identify practices that she commonly engaged in to reduce the intensity, duration, and frequency of these unwanted symptoms. Julian Mcdowell MA, QUALITY ASSURANCE SUPERVISOR Addendum: 07/20/20 at 1129 by Julian Mcdowell SS Amended: Links added.
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
[2020-07-20] MEDS: mag hydrox/Alum hydrox/simeth 30ml oral suspension PO PRN (14:48)
[2020-07-20 19:43] VITALS: BP 139/86
[2020-07-20] MEDS: atorvastatin 20mg tablet PO SCH (21:12)
[2020-07-20] MEDS: lithium carbonate 300mg SR tablet (LithoBID) PO SCH (21:24)
[2020-07-20] MEDS ORDERED: ondansetron 4mg rapidly disintigrating tab PO ONE (21:30)
[2020-07-21] MEDS ORDERED: ondansetron 4mg rapidly disintigrating tab PO ONE (00:30)
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
[2020-07-21 07:56] VITALS: BP 121/72
[2020-07-21] MEDS: voritoxetine HBr tablet 5 MG TABLET PO SCH (08:10)
[2020-07-21] MEDS: busPIRone 5mg tablet PO SCH ×3 (08:11→20:28)
[2020-07-21] MEDS: levoTHYROXINE 125mcg tablet PO SCH (08:11)
[2020-07-21] MEDS: propranolol 10mg tablet PO SCH ×3 (08:11→20:28)
[2020-07-21] MEDS: metFORMIN 500mg tablet PO SCH ×2 (08:11→17:09)
--- NOTE | 2020-07-21 10:00 | NUR ---
Group Therapy: Process Group This Clinicians goal for this process group were as follows: (1) Ask scaling questions about Patients current anxiety, depression, and irritability symptoms as a check-in. (2) Provide psychoeducation on emotional and situational stressors. (3) Discuss thoughts and feelings that patients experience when they have experienced an emotional and/or situational stressor. (4) Provide psychoeducation on interventions, as actions patients can take to reduce feelings of emotional escalation caused by situational and emotional stressors. (5) Process Patients thoughts and reflections on this topic within the group milieu. Patient identified experiencing the following levels of anxiety, depression, and anger/irritability while present in the group milieu (0-low; 10-High). Anxiety: 0/10 Depression: 4/10 Anger/irritability: 0/10 Patient presented as properly oriented x4 during the process group. Patient was dressed in green hospital scrubs within the milieu. Psychomotor activity was unremarkable. Patient's thought content was clear, and concrete. Patient's thought process was clear, coherent, and linear. This Clinician did not observe Patient responding to any internal stimuli during session. The rate, latency, and tone of Patients speech was within normal limits. Patient maintained regular eye contact with this Clinician. Patient presented in calm euthymic mood, with congruent affect during the process group. Patient presented as open and cooperative, and was verbally engaged and nonobtrusive within the group milieu. Patient presentation during the process group discussion on emotional and situational stressors was ideal. Patient shared a stressful situation that she frequently experiences, namely, waking up from a nightmare with a sense of terror. Patient identified that her first intervention that she frequently utilizes to self-soothe and calm down was to repeat to herself, "It isn't real," which this Clinician praised as a reality-based, and thought-reframing intervention. Patient then noted that she would try to hug herself to calm down. This Clinician emphasized the importance of controlled breathing, and muscle relaxation as potential interventions that could potentially assist Patient in reducing the acuity of her anxiety during said episodes of waking up with a sense of terror. Julian Mcdowell MA, PAYMENT MANAGER Addendum: 07/21/20 at 1153 by Julian Mcdowell SS Amended: Links added.
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
[2020-07-21 19:34] VITALS: BP 142/85
[2020-07-21] MEDS: atorvastatin 20mg tablet PO SCH (20:28)
[2020-07-21] MEDS: lithium carbonate 300mg SR tablet (LithoBID) PO SCH (20:28)
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
[2020-07-22 07:32] VITALS: BP 136/84
[2020-07-22] MEDS: levoTHYROXINE 125mcg tablet PO SCH (07:59)
[2020-07-22] MEDS: propranolol 10mg tablet PO SCH ×3 (07:59→20:10)
[2020-07-22] MEDS: voritoxetine HBr tablet 5 MG TABLET PO SCH (07:59)
[2020-07-22] MEDS: busPIRone 5mg tablet PO SCH ×3 (07:59→20:10)
[2020-07-22] MEDS: metFORMIN 500mg tablet PO SCH ×2 (07:59→17:12)
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
[2020-07-22] MEDS ORDERED: ondansetron 4mg rapidly disintigrating tab PO PRN (18:15)
[2020-07-22 19:33] VITALS: BP 129/80
[2020-07-22] MEDS: atorvastatin 20mg tablet PO SCH (20:10)
[2020-07-22] MEDS: lithium carbonate 300mg SR tablet (LithoBID) PO SCH (20:10)
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
[2020-07-23] MEDS: propranolol 10mg tablet PO SCH ×3 (07:20→20:29)
[2020-07-23] MEDS: busPIRone 5mg tablet PO SCH ×3 (07:20→20:29)
[2020-07-23] MEDS: metFORMIN 500mg tablet PO SCH ×2 (07:20→17:20)
[2020-07-23] MEDS: levoTHYROXINE 125mcg tablet PO SCH (07:20)
[2020-07-23] MEDS: voritoxetine HBr tablet 5 MG TABLET PO SCH (07:27)
[2020-07-23 07:34] VITALS: BP 109/66
[2020-07-23 12:56] VITALS: BP 132/78
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
--- NOTE | 2020-07-23 14:35 | NUR ---
F/u 07/23: Pt PO 75-100% avg carb controlled meals meeting needs. LBM 07/22. No nutrition concerns at this time. Will continue to monitor. Rec: 1. continue carb controlled diet 2. routine bowel care 3. wt per rx Addendum: 07/23/20 at [address] Amended: Links added.
[2020-07-23 19:26] VITALS: BP 134/87
[2020-07-23] MEDS: atorvastatin 20mg tablet PO SCH (20:29)
[2020-07-23] MEDS: lithium carbonate 300mg SR tablet (LithoBID) PO SCH (20:37)
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
[2020-07-24] MEDS: metFORMIN 500mg tablet PO SCH ×2 (07:32→17:24)
[2020-07-24] MEDS: pantoprazole 40mg Tablet.DR PO SCH (07:33)
[2020-07-24] MEDS: busPIRone 5mg tablet PO SCH ×3 (07:33→20:28)
[2020-07-24] MEDS: voritoxetine HBr tablet 5 MG TABLET PO SCH (07:33)
[2020-07-24] MEDS: propranolol 10mg tablet PO SCH ×3 (07:33→20:28)
[2020-07-24] MEDS: levoTHYROXINE 125mcg tablet PO SCH (07:33)
[2020-07-24 07:37] VITALS: BP 108/66
[2020-07-24 07:38] VITALS: BP 108/66
[2020-07-24] MEDS ORDERED: pantoprazole 40mg Tablet.DR PO ONE (15:00)
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
[2020-07-24 20:19] VITALS: BP 127/70
[2020-07-24] MEDS: atorvastatin 20mg tablet PO SCH (20:28)
[2020-07-24] MEDS: lithium carbonate 450mg CR tablet PO SCH (20:28)
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
[2020-07-25] MEDS: lithium carbonate 450mg CR tablet PO SCH ×2 (07:46→20:27)
[2020-07-25] MEDS: pantoprazole 40mg Tablet.DR PO SCH (07:46)
[2020-07-25] MEDS: levoTHYROXINE 125mcg tablet PO SCH (07:46)
[2020-07-25] MEDS: metFORMIN 500mg tablet PO SCH ×2 (07:46→17:10)
[2020-07-25 07:47] VITALS: BP 131/76
[2020-07-25] MEDS: busPIRone 5mg tablet PO SCH ×3 (07:47→20:27)
[2020-07-25] MEDS: propranolol 10mg tablet PO SCH ×3 (07:47→20:26)
[2020-07-25] MEDS: voritoxetine HBr tablet 5 MG TABLET PO SCH (07:47)
[2020-07-25 12:20] VITALS: BP 132/80
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
[2020-07-25 20:00] VITALS: BP 143/74
[2020-07-25] MEDS: atorvastatin 20mg tablet PO SCH (20:27)
[2020-07-25 21:01] VITALS: BP 143/74
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
[2020-07-26 07:46] VITALS: BP 119/74
[2020-07-26] MEDS: busPIRone 5mg tablet PO SCH ×2 (07:50→12:37)
[2020-07-26] MEDS: voritoxetine HBr tablet 5 MG TABLET PO SCH (07:51)
[2020-07-26] MEDS: lithium carbonate 450mg CR tablet PO SCH (07:51)
[2020-07-26] MEDS: levoTHYROXINE 125mcg tablet PO SCH (07:51)
[2020-07-26] MEDS: metFORMIN 500mg tablet PO SCH (07:51)
[2020-07-26] MEDS: pantoprazole 40mg Tablet.DR PO SCH (07:51)
[2020-07-26] MEDS: propranolol 10mg tablet PO SCH ×2 (08:00→12:38)
--- NOTE | 2020-07-26 10:00 | NUR ---
Group Therapy: Process Group This Clinicians goals for this process group were as follows: (1) Ask scaling questions about Patients current anxiety, depression, and irritability symptoms as a check-in. (2) Share psychoeducation about automatic thoughts and cognitive distortions. (3) Share psychoeducation on CBT thought-stopping and, thought-reframing. (4) Discuss strategies for identifying negative, unhelpful, and/or irrational thoughts as quickly as possible to avoid unwanted escalation of mental health symptoms. (5) Process Clients thoughts and reflections on this topic within the group milieu. Patient identified experiencing the following levels of anxiety, depression, and anger/irritability while present in the group milieu (0-low; 10-High). Anxiety: 4/10 Depression: 3/10 Anger/irritability: 0/10 Patient presented as properly oriented x4 during the process group. Patient was dressed in green hospital scrubs within the milieu. Psychomotor activity was unremarkable. Patient's thought content was clear, and concrete. Patient's thought process was clear, coherent, and linear. This Clinician did not observe Patient responding to any internal stimuli during session. The rate, latency, and tone of Patients speech was within normal limits. Patient maintained regular eye contact with this Clinician. Patient presented in calm euthymic mood, with congruent affect during the process group. Patient presented as open and cooperative, and was verbally engaged and nonobtrusive within the group milieu. Patient was an active participant in the group during the discussion on identifying different cognitive distortions along with principles of CBT thought-stopping and thought-reframing that one could utilize to identify more balanced/helpful/rational alternatives to said cognitive distortions. Patient laughed in a good-natured way during a couple comments shared by one of her peers. Patient reported that she was excited about leaving, as she believes that her discharge date is approaching. Julian Mcdowell MA, [employer] Addendum: 07/26/20 at 1132 by Julian Mcdowell Amended: Links added.
[2020-07-26] MEDS ORDERED: METF-950 PO (12:12)
[2020-07-26] MEDS ORDERED: VORT10TA PO (12:12)
[2020-07-26] MEDS ORDERED: TRAZ-251 PO (12:12)
[2020-07-26] MEDS ORDERED: HYDR-3686 PO (12:12)
[2020-07-26] MEDS ORDERED: BUSP10TA10 PO (12:12)
[2020-07-26] MEDS ORDERED: lithium carbonate 450mg CR PO (12:12)
[2020-07-26] MEDS ORDERED: PROP20TA6 PO (12:12)
[2020-07-26] MEDS ORDERED: PANT40TA54 PO (12:12)
--- NOTE | 2020-07-26 13:43 | NUR ---
DISCHARGE NOTE: Patient denies SI/HI. Patient's inventory was gone over with patient. Patient has follow-up with [facility] on 08/01/20 at 14:20 with her therapist. Patient states that she is eager to go home to her apartment. Patient is escorted out of the hospital by AIDEN Jordan, in stable condition. Patient has her car at [facility] and will scoop driver herself home.
--- NOTE | 2020-07-26 15:46 | NUR ---
CM-DCP/Discharge Presenting Issues: Attending Physician requesting SS assist pt with dcp/activities. Interventions: SS met w/pt and engaged her in dcp activities, per session pt wants to return to the [facility] for follow-up care. SS had t/c with the [facility] and coordinated pt's aftercare plan, scheduled her post-hospital medication appointment and psychotherapy appointment. Plan: Pt to d/c home and follow-up with [facility]. Elissa Nicholson LCSW Addendum: 07/26/20 at 1614 by Elissa BOWSER Amended: Links added.
== END 2020-07-26 13:43 | disposition home or self-care (01) | DRG 885 ==
LOC: ADULT MH 16:08
PROVIDERS: ADMIT Psychiatry & Neurology Psychiatry; ATTEND Psychiatry & Neurology Psychiatry
DX: F33.2 Major depressive disorder, recurrent severe without psychotic features (principal); R45.851 Suicidal ideations; Z68.41 Body mass index [BMI] 40.0-44.9, adult; E06.3 Autoimmune thyroiditis; E11.9 Type 2 diabetes mellitus without complications; E66.9 Obesity, unspecified; E78.5 Hyperlipidemia, unspecified; F43.10 Post-traumatic stress disorder, unspecified; I10 Essential (primary) hypertension; Z79.84 Long term (current) use of oral hypoglycemic drugs; Z79.890 Hormone replacement therapy; Z79.899 Other long term (current) drug therapy; Z83.3 Family history of diabetes mellitus
CPT/HCPCS: 36415; 80061; 80178; 82948; 83036; 84439; 84443; 87081

== ENCOUNTER 2021-04-10 19:02 | Emergency (ER) | payer BC, MEDICAID ==
[~2021-04-10] VITALS: Ht 177.8 cm; Wt 136.4 kg
[~2021-04-10 19:02] MED LIST changes: +ATOR20TA PO; -BUS15T PO; +BUSP10TA10 PO; -LAMO100T2 PO; -LIT300C PO; +METF-950 PO; +NABU-139 PO; +PANT40TA54 PO; +TRAZ-251 PO; +VORT10TA PO; +lithium carbonate 450mg CR PO
[2021-04-10 19:07] VITALS: BP 139/89
[2021-04-10 20:07] LABS: URINE HCG NEGATIVE (NEG)
[2021-04-10 20:09] LABS: BASOPHILS # (AUTO) 0.1 X10'3 (0-0.2); BASOPHILS % (AUTO) 0.8 % (0-1); EOSINOPHILS # (AUTO) 0.4 X10'3 (0-0.9); EOSINOPHILS % (AUTO) 3.8 % (0-6); HEMATOCRIT 38.9 % (35.0-45.0); HEMOGLOBIN 12.9 g/dl (12.0-16.0); LYMPHOCYTES # (AUTO) 3.1 X10'3 (1.1-4.8); MEAN CORPUSCULAR HEMOGLOBIN 27.9 PG (27.0-31.0); MEAN CORPUSCULAR HGB CONC 33.3 g/dL (33.0-36.5); MEAN CORPUSCULAR VOLUME 83.7 FL (78-98); MONOCYTES # (AUTO) 0.6 X10'3 (0-0.9); MONOCYTES % (AUTO) 5.5 % (2-12); NEUTROPHILS # (AUTO) 6.2 X10'3 (1.8-7.7); NEUTROPHILS % (AUTO) 59.9 % (42-75); PLATELET COUNT 308 X10'3 (140-440); RED BLOOD COUNT 4.64 X10'6 (4.20-5.60); RED CELL DISTRIBUTION WIDTH 16.5 % (11.5-14.5); WHITE BLOOD COUNT 10.4 X10'3 (4.5-11.0)
[2021-04-10 20:15] LABS: ALANINE AMINOTRANSFERASE 71 U/L (12-78); ALBUMIN 3.7 G/DL (3.4-5.0); ALKALINE PHOSPHATASE 92 IU/L (46-116); ANION GAP 12 (8-16); ASPARTATE AMINO TRANSFERASE 46 U/L (10-37); BILIRUBIN,TOTAL 0.3 MG/DL (0.1-1.0); BLOOD UREA NITROGEN 10 MG/DL (7-18); BUN/CREATININE RATIO 16.9 (6.6-38.0); CALCIUM 8.8 MG/DL (8.5-10.1); CHLORIDE 103 MMOL/L (99-107); CREATININE 0.59 MG/DL (0.40-0.90); GLUCOSE 163 MG/DL (70-104); POTASSIUM 4.1 MMOL/L (3.5-5.1); SODIUM 139 MMOL/L (135-145); TOTAL CARBON DIOXIDE 23.9 MMOL/L (24-32); TOTAL PROTEIN 7.3 G/DL (6.4-8.2); eGFR > 90 ML/MIN
[2021-04-10 20:21] LABS: COLOR,URINE YELLOW (Yellow); GLUCOSE, URINE NEGATIVE (Neg); KETONES,URINE TRACE mg/dl (Neg); LEUKOCYTE ESTERASE ,URINE NEGATIVE (Neg); NITRITES, URINE NEGATIVE (Neg); OCCULT BLOOD,URINE TRACE-INTACT (Neg); PH,URINE 5.5 (4.8-8.0); PROTEIN,URINE NEGATIVE (Neg); URINE AMPHETAMINE SCREEN NEGATIVE (Neg); URINE BARBITUATE SCREEN NEGATIVE (Neg); URINE BENZODIAZEPINES SCREEN NEGATIVE (Neg); URINE CANNABINOID SCREEN NEGATIVE (Neg); URINE COCAINE SCREEN NEGATIVE (Neg); URINE METHADONE SCREEN NEGATIVE (Neg); URINE OPIATE SCREEN NEGATIVE (Neg); URINE PHENCYCLIDINE SCREEN NEGATIVE (Neg); UROBILINOGEN,URINE 0.2 E.U/dL (0.2-1.0)
[2021-04-10 20:22] LABS: ETHANOL < 0.010 GM/DL (0.0-0.010)
[2021-04-10 20:28] LABS: ACETAMINOPHEN < 2.0 UG/ML (10-30)
[2021-04-10 20:34] LABS: CLARITY,URINE SLIGHTLY CLOUDY (Clear); UA COLLECTION TYPE CLN CATCH MIDSTREAM
[2021-04-10 20:35] LABS: BACTERIA,URINE 1+ /HPF (Neg); RBC,URINE 0-2 /HPF (0-2); SQUAMOUS EPITHELIAL CELL,UR MODERATE /LPF (FEW); WBC,URINE 0-4 /HPF (0-4)
[2021-04-10 20:36] LABS: MUCUS STRANDS MODERATE /LPF (Neg)
[2021-04-10] MEDS ORDERED: LIT300C PO (21:23)
[2021-04-10] MEDS ORDERED: LAMO100T PO (21:23)
[2021-04-10] MEDS ORDERED: PROP10TA10 PO (21:23)
[2021-04-10] MEDS ORDERED: BUSP10TA3 PO (21:23)
[2021-04-10] MEDS ORDERED: TRAZ-256 PO (21:23)
--- NOTE | 2021-04-10 23:34 | NUR ---
Patient laying on stretcher, tapping foot- appears restless. Even and unlabroed respirations.
--- NOTE | 2021-04-11 00:44 | NUR ---
PT SITTING UPRIGHT ON SIDE OF BED, KICKING FOOT. PT SEEMS ANXIOUS. SHOWS NO S/S OF ACUTE DISTRESS.
--- NOTE | 2021-04-11 01:54 | NUR ---
PT IN BED SUPINE, COVERED W/ HOSPITAL BLANKET. UNLABORED BREATHING, APPEARS TO BE IN NO ACUTE DISTRESS AT THIS TIME.
--- NOTE | 2021-04-11 03:09 | NUR ---
PT RESTING ON RIGHT SIDE. APPEARS TO BE SLEEPING. SHOWS NO S/S OF ACUTE DISTRESS.
--- NOTE | 2021-04-11 04:25 | NUR ---
PT RESTING W/EYES CLOSED. NO S/S OF ACUTE DISTRESS.
[2021-04-11] MEDS ORDERED: VORT10TA PO (06:47)
--- NOTE | 2021-04-11 06:51 | NUR ---
FAXED PACKET [facility]
--- NOTE | 2021-04-11 06:54 | NUR ---
Patient sleeping on right side. No distress observed. Continue to monitor.
[2021-04-11] MEDS ORDERED: lithium carbonate 300mg SR tablet (LithoBID) PO SCH (08:00)
[2021-04-11] MEDS ORDERED: propranolol 10mg tablet PO SCH (08:00)
[2021-04-11] MEDS ORDERED: lamoTRIgine 100mg tablet PO SCH (08:00)
[2021-04-11] MEDS ORDERED: busPIRone 5mg tablet PO SCH (08:00)
[2021-04-11] MEDS ORDERED: NABUMETONE 500 MG PO SCH (08:00)
[2021-04-11] MEDS ORDERED: levoTHYROXINE 125mcg tablet PO SCH (08:00)
--- NOTE | 2021-04-11 08:30 | NUR ---
Patient awake and alert. Patient is very depressed. RN asked patient if she still felt like harming herself. Patient stated she didn't know but states her depression is overwhelming. Patient has flat affect and appears depressed. Patient picking at her breakfast. Continue to monitor.
--- NOTE | 2021-04-11 09:59 | NUR ---
Patient with eyes closed laying supine in bed Patient walked over to ED OF 15 minutes ago. No distress observed. Continue to monitor.
--- NOTE | 2021-04-11 10:30 | NUR ---
Esvin MAYS, evaluating patient. Continue to monitor.
--- NOTE | 2021-04-11 11:09 | NUR ---
Patient accepted at [facility]. Patient will go after change of shift.
--- NOTE | 2021-04-11 12:25 | NUR ---
Patient is sleeping supine. No distress observed. Continue to monitor.
--- NOTE | 2021-04-11 12:38 | NUR ---
Robinson hannon in [facility] - 04/11/21 at 1240 by [email or web address] breaking primary RN, pt is sitting on top of his bed, calm, has guest, no needs at this time
--- NOTE | 2021-04-11 12:41 | NUR ---
pt supine in bed eyes closed, no needs at this time
--- NOTE | 2021-04-11 14:10 | NUR ---
Patient awake in bed with her eyes closed laying supine. Patient's foot is tapping nervously. Continue to monitor.
--- NOTE | 2021-04-11 15:09 | NUR ---
Patient sleeping supine. No distress observed. Continue to monitor.
[2021-04-11] MEDS ORDERED: atorvastatin 20mg tablet PO SCH (21:00)
[2021-04-11] MEDS ORDERED: traZODone 50mg tablet PO SCH (21:00)
== END 2021-04-11 16:29 | disposition home or self-care (01) ==
LOC: ER 19:03
DX: F32.9 Major depressive disorder, single episode, unspecified (principal); Z20.822 Contact with and (suspected) exposure to COVID-19; F41.9 Anxiety disorder, unspecified; Z88.6 Allergy status to analgesic agent; Z91.013 Allergy to seafood; Z79.899 Other long term (current) drug therapy
CPT/HCPCS: 36415; 80053; 80178; 80305; 80320; 80329; 81001; 81025; 84443; 85025; 87635; 99284; C9803

== ENCOUNTER 2021-04-11 13:27 | Inpatient (IN) | payer BC, MEDICAID ==
[~2021-04-11] VITALS: Ht 175.3 cm; Wt 130.2 kg
[~2021-04-11 13:27] MED LIST changes: -BUSP10TA10 PO; +BUSP10TA3 PO; -HYDR-3686 PO; +LAMO100T PO; +LIT300C PO; -METF-950 PO; -PANT40TA54 PO; +PROP10TA10 PO; -PROP20TA6 PO; -TRAZ-251 PO; +TRAZ-256 PO; -lithium carbonate 450mg CR PO
[2021-04-11] MEDS ORDERED: mag hydrox/Alum hydrox/simeth 30ml oral suspension PO PRN (16:20)
[2021-04-11] MEDS ORDERED: traZODone 50mg tablet PO PRN ×2 (16:20→19:30)
[2021-04-11] MEDS ORDERED: loperamide 2mg capsule PO PRN (16:20)
[2021-04-11] MEDS ORDERED: LORazepam 1 MG tablet PO PRN (16:20)
[2021-04-11] MEDS ORDERED: acetaminophen 325mg tablet PO PRN ×2 (16:20)
[2021-04-11] MEDS ORDERED: magnesium hydroxide 30ml (MOM) UD suspension PO PRN (16:20)
[2021-04-11 17:27] VITALS: BP 145/75
--- NOTE | 2021-04-11 18:07 | NUR ---
Pt arrived on the unit from ER overflow in w/c accompanied by PCT and security at 1630. Pt presented to [facility] ER on 04/10/21 via EMS sent from [facility] for SI/DTS. Pt has a Hx of Bipolar 2, anxiety, depression, PTSD DMII, HTN, hyperlipidemia, hypothyroidism, cholecystectomy, and obesity. Pt has a HX of 2 previous suicide attempts by overdosing on medication. Pt states that she go sick with a virus and stopped taking her meds a couple of weeks ago, she was transferred at work, and she was overcharged on her rent contributing to increased depression with SI. Pt is denying SI at this time and contracts for safety. Pt sees BI Macias at [facility]. Endorsed [place] suicide assessment and med rec to noc shift.
[2021-04-11 20:49] VITALS: BP 144/88
[2021-04-11] MEDS: busPIRone 5mg tablet PO SCH (21:39)
[2021-04-11] MEDS: atorvastatin 20mg tablet PO SCH (21:39)
[2021-04-11] MEDS: propranolol 10mg tablet PO SCH (21:40)
[2021-04-11] MEDS: traZODone 50mg tablet PO SCH (21:40)
[2021-04-11] MEDS: lithium carbonate 300mg SR tablet (LithoBID) PO SCH (21:40)
--- NOTE | 2021-04-12 02:23 | NUR ---
Nursing Progress Note: Legal hold: 5150 for DTS Report received from nurse with use of Salomon NGUYỄN Why are they here: Pt presented to [facility] ER on 04/10/21 via EMS sent from [facility] for SI/DTS. Pt has a Hx of Bipolar, Type II & PTSD. Pt has a HX of 2 previous suicide attempts by overdosing on medication. Pt states that she got sick with a virus and stopped taking her meds a couple of weeks ago, she was transferred at work, and she was overcharged on her rent contributing to increased depression with SI. Assessment What has happened this shift: Patient stayed in her room the entire shift, resting and sleeping. She declined snack. Pt endorses depression but denies SI, although she seems to be minimizing her emotions aeb poor eye contact, and guarded behavior during assessment. She took all her medications but did not elaborate on assessment questions or recent stressors unless pushed by this RN, and even then the pt would only respond with short, minimal sentences. S/I, H/I: Denies A/VH: Denies Sleep: See Sleep Assessment ADL's: Independent Group attendance: N/A Were meds taken: Yes Any med S/E: none reported nor observed Mental Status Exam Appearance: Slightly disheveled, wearing personal clothing. Eye contact: Poor Behavior: Isolative, Guarded Speech: Soft, Slow Mood: Depressed Affect: Flat Thought process: Linear Thought Content: meeting needs Cognition: A&Ox4 Insight: poor to fair Judgment: poor Justification of Continued Inpatient Treatment: The patient stopped taking her medications and then recent stressors lead to her unable to cope and become suicidal. Pt needs medication regimen re-established in order to be safely discharged.
[2021-04-12] MEDS ORDERED: lamoTRIgine 100mg tablet PO SCH (08:00)
[2021-04-12 08:07] LABS: CHOL/HDL RATIO 4.8 (0.00-4.99); CHOLESTEROL 195 MG/DL (0-200); HDL CHOLESTEROL 41 MG/DL (35-60); LDL CHOLESTEROL 119 MG/DL (50-100); TRIGLYCERIDES 183 MG/DL (20-135)
[2021-04-12 08:08] VITALS: BP 125/81
[2021-04-12 08:08] LABS: HEMOGLOBIN A1C 6.6 % (4.5-6.2)
[2021-04-12] MEDS: busPIRone 5mg tablet PO SCH ×2 (08:25→20:41)
[2021-04-12] MEDS: levoTHYROXINE 125mcg tablet PO SCH (08:25)
[2021-04-12] MEDS: lithium carbonate 300mg SR tablet (LithoBID) PO SCH ×2 (08:25→20:40)
[2021-04-12] MEDS: voritoxetine HBr tablet 5 MG TABLET PO SCH (08:25)
[2021-04-12] MEDS: propranolol 10mg tablet PO SCH (08:25)
--- NOTE | 2021-04-12 16:34 | NUR ---
Nursing Progress Note: Legal hold: 5150 for DTS Report received from RN with use of SBAR Why are they here: Pt presented to [facility] ER on 04/10/21 via EMS sent from [facility] for SI/DTS. Pt has a Hx of Bipolar, Type II & PTSD. Pt has a HX of 2 previous suicide attempts by overdosing on medication. Pt states that she got sick with a virus and stopped taking her meds a couple of weeks ago, she was transferred at work, and she was overcharged on her rent contributing to increased depression with SI. Assessment What has happened this shift: Received Pt in bed sleeping w/o distress at the beginning of the shift. Pt woke and was cooperative with vitals. Pt did not eat breakfast and remained in bed. Pt took AM meds w/o issue and remained in bed. Pt is quiet and uses few words to answer qs. Pt is depressed and overall cooperative but wants to be left alone. Pt denies current SI. Pt remained in bed the majority of the shift and also did not eat lunch, although encouraged to do so. Encouraged Pt to drink fluids and perform adls. S/I, H/I: Denies A/VH: Denies Sleep: See Sleep Assessment ADL's: Independent Group attendance: N/A Were meds taken: Yes Any med S/E: none reported nor observed Mental Status Exam Appearance: Slightly disheveled, wearing personal clothing. Eye contact: Poor Behavior: Isolative, Guarded Speech: Soft, Slow Mood: Depressed Affect: Flat Thought process: Linear Thought Content: meeting needs Cognition: A&Ox4 Insight: poor to fair Judgment: poor Interventions PRN's used: None Therapeutic interventions: Maintained a safe and therapeutic environment, ensured contract for safety, provided clear and simple instructions, monitored behaviors and need for intervention, provided redirection and boundaries as needed, maintained structure and clear boundaries, and maintained Q 15min safety checks. Restraints/seclusion/emergency medication: N/A Justification of Continued Inpatient Treatment: Patient needs interruption of current crisis in a safe and therapeutic milieu until stable. Pt needs medication regimen re-established in order to be safely discharged.
[2021-04-12] MEDS ORDERED: propranolol 10mg tablet PO PRN (19:10)
[2021-04-12 20:00] VITALS: BP 131/84
[2021-04-12] MEDS: traZODone 50mg tablet PO SCH (20:41)
[2021-04-12] MEDS: atorvastatin 20mg tablet PO SCH (20:42)
[2021-04-12] MEDS: lamoTRIgine 25mg tablet PO SCH (20:49)
[2021-04-12] MEDS: lamoTRIgine 100mg tablet PO SCH (20:49)
--- NOTE | 2021-04-13 04:20 | NUR ---
Nursing Progress Note: Legal hold: 5150 for DTS Report received from nurse with use of Juarez NGUYỄN Why are they here: Pt presented to [facility] ER on 04/10/21 via EMS sent from [facility] for SI/DTS. Pt has a Hx of Bipolar, Type II & PTSD. Pt has a HX of 2 previous suicide attempts by overdosing on medication. Pt states that she got sick with a virus and stopped taking her meds a couple of weeks ago, she was transferred at work, and she was overcharged on her rent contributing to increased depression with SI. Assessment What has happened this shift: Patient stayed in her room the entire shift, resting and sleeping. She declined snack. Pt endorses depression but denies SI, although she seems to be minimizing her emotions aeb poor eye contact, and guarded behavior during assessment. She took all her medications but did not elaborate on assessment questions or recent stressors; RN attempted to discuss work situation but pt shut down and did not continue discussion. She had difficulty falling asleep initially this evening. S/I, H/I: Denies A/VH: Denies Sleep: See Sleep Assessment ADL's: Independent Group attendance: N/A Were meds taken: Yes Any med S/E: none reported nor observed Mental Status Exam Appearance: Slightly disheveled, wearing personal clothing. Eye contact: Poor Behavior: Isolative, Guarded Speech: Soft, Slow Mood: Depressed Affect: Flat Thought process: Linear Thought Content: meeting needs Cognition: A&Ox4 Insight: poor to fair Judgment: poor Justification of Continued Inpatient Treatment: The patient stopped taking her medications and then recent stressors lead to her unable to cope and become suicidal. Pt needs medication regimen re-established in order to be safely discharged.
[2021-04-13 08:00] VITALS: BP 109/78
[2021-04-13] MEDS: levoTHYROXINE 125mcg tablet PO SCH (08:08)
[2021-04-13] MEDS: busPIRone 5mg tablet PO SCH ×3 (08:09→20:07)
[2021-04-13] MEDS: lithium carbonate 300mg SR tablet (LithoBID) PO SCH ×2 (08:09→20:08)
[2021-04-13] MEDS: voritoxetine HBr tablet 5 MG TABLET PO SCH ×2 (08:09→20:06)
--- NOTE | 2021-04-13 13:39 | NUR ---
Attempted to meet with Ivy twice today to complete psychosocial assessment. The first time she was sleeping and responded when appeals writer said her name and then would not respond any further to questions. The second time she was still laying down but facing the door so appeals writer could see her eyes were open. She responded to a few questions and then covered her face with the blanket. Furnace Stock Inspector completed psychosocial assessment based on medical records and from her previous visits to [facility]. SEVERO Case
--- NOTE | 2021-04-13 15:25 | NUR ---
Nursing Progress Note: Legal hold: 5150 for DTS Report received from Jyoti THOMAS with use of SBAR Why are they here: Pt presented to [facility] ER on 04/10/21 via EMS sent from [facility] for SI/DTS. Pt has a Hx of Bipolar, Type II & PTSD. Pt has a HX of 2 previous suicide attempts by overdosing on medication. Pt states that she got sick with a virus and stopped taking her meds a couple of weeks ago, she was transferred at work, and she was overcharged on her rent contributing to increased depression with SI. Assessment What has happened this shift: Received Pt in bed sleeping w/o distress at the beginning of the shift. Pt woke and was cooperative with vitals. Pt did not eat breakfast and remained in bed. Pt took AM meds w/o issue and remained in bed. Pt is quiet and uses few words to answer qs. Pt is depressed and overall cooperative but wants to be left alone. Pt denies current SI. Pt remained in bed the majority of the shift and also did not eat lunch, although encouraged to do so, this rewriter offered sealed food patient still declined. Patient did have a small emeses this morning, this wrtier offered crackers or something to settle her stomach patient declined. S/I, H/I: Denies A/VH: Denies Sleep: See Sleep Assessment ADL's: Independent, no shower today Group attendance: N/A Were meds taken: Yes Any med S/E: none reported nor observed Mental Status Exam Appearance: Slightly disheveled, wearing personal clothing. Eye contact: Poor Behavior: Isolative, Guarded Speech: Soft, Slow Mood: Depressed Affect: Flat Thought process: Linear Thought Content: unable to access Cognition: A&Ox4 Insight: poor to fair Judgment: poor Interventions PRN's used: None Therapeutic interventions: Maintained a safe and therapeutic environment, ensured contract for safety, provided clear and simple instructions, monitored behaviors and need for intervention, provided redirection and boundaries as needed, maintained structure and clear boundaries, and maintained Q 15min safety checks. Restraints/seclusion/emergency medication: N/A Justification of Continued Inpatient Treatment: Patient needs interruption of current crisis in a safe and therapeutic milieu until stable. Pt needs medication regimen re-established in order to be safely discharged.
[2021-04-13] MEDS ORDERED: ondansetron 4mg rapidly disintigrating tab PO PRN (17:20)
--- NOTE | 2021-04-13 18:15 | NUR ---
Patient in room MH 323. I have received report from WILLIAM Pizarro and had the opportunity to ask questions and assume patient care.
[2021-04-13 19:00] VITALS: BP 126/84
[2021-04-13] MEDS: traZODone 50mg tablet PO SCH (20:07)
[2021-04-13] MEDS: lamoTRIgine 100mg tablet PO SCH (20:07)
[2021-04-13] MEDS: lamoTRIgine 25mg tablet PO SCH (20:07)
[2021-04-13] MEDS: atorvastatin 20mg tablet PO SCH (20:07)
--- NOTE | 2021-04-14 02:24 | NUR ---
Progress Note Report received from WILLIAM Pizarro : Legal hold: 5150 for DTS Why are they here: Pt presented to [facility] ER on 04/10/21 via EMS sent from [facility] for SI/DTS. Pt has a Hx of Bipolar, Type II & PTSD. Pt has a HX of 2 previous suicide attempts by overdosing on medication. Pt states that she got sick with a virus and stopped taking her meds a couple of weeks ago, she was transferred at work, and she was overcharged on her rent contributing to increased depression with SI. Assessment What has happened this shift: Received Pt in bed awake w/o distress at the beginning of the shift. Pt ate dinnner and lay in bed after. Pt took her hs meds w/o issue and remained in bed. Pt is quiet and uses few words to answer qs. Pt is depressed and overall cooperative but wants to be left alone. Pt denies current SI. Pt remained in bed the majority of the shift and at 0200 she complained of stomach discomfort ,nausea ,she received Zofran p.o We will continue with pt. care. S/I, H/I: Denies A/VH: Denies Sleep: See Sleep Assessment ADL's: Independent, no shower today Group attendance: N/A Were meds taken: Yes Any med S/E: none reported nor observed Mental Status Exam
[2021-04-14 07:39] VITALS: BP 127/76
[2021-04-14] MEDS: metFORMIN 500mg tablet PO SCH ×3 (08:22→17:41)
[2021-04-14] MEDS: linagliptin 5mg tablet PO SCH (08:23)
[2021-04-14] MEDS: busPIRone 5mg tablet PO SCH ×3 (08:23→20:28)
[2021-04-14] MEDS: lithium carbonate 300mg SR tablet (LithoBID) PO SCH ×2 (08:23→20:28)
[2021-04-14] MEDS: levoTHYROXINE 125mcg tablet PO SCH (08:23)
--- NOTE | 2021-04-14 18:04 | NUR ---
Nursing Progress Note: Legal hold: 5150 for DTS Report received from Jyoti THOMAS with use of SBAR Why are they here: Pt presented to [facility] ER on 04/10/21 via EMS sent from [facility] for SI/DTS. Pt has a Hx of Bipolar, Type II & PTSD. Pt has a HX of 2 previous suicide attempts by overdosing on medication. Pt states that she got sick with a virus and stopped taking her meds a couple of weeks ago, she was transferred at work, and she was overcharged on her rent contributing to increased depression with SI. Assessment What has happened this shift: shift: Pt stayed in bed all day. She refused meals. She denies MH symptoms but is very short in answers and at times refuses to respond and puts blanket over her face. RN explained to her that she needs to eat something as she is taking meds in order to avoid stomach upset. RN checked glucose as pt is taking Metformin TID but has been refusing all her meals. BG 129. Pt finally ate a few very small bites of bread from a sandwich and threw the rest away. S/I, H/I: Pt denies A/VH: Pt denies Sleep: Pt slept most of the day ADL's: Independent, no shower today Group attendance: N/A Were meds taken: Yes Any med S/E: None noted Mental Status Exam Appearance: Wearing her own clothes. Hair disheveled Eye contact: Poor Behavior: Withdrawn, depressed, isolative, guarded, annoyed Speech: Soft, mumbled Mood: Depressed Affect: Flat Thought process: Circumstantial Thought Content: Unable to access Cognition: Alert Insight: poor Judgment: poor Interventions PRN's used: None Therapeutic interventions: Maintained a safe and therapeutic environment, ensured contract for safety, provided clear and simple instructions, monitored behaviors and need for intervention, provided redirection and boundaries as needed, maintained structure and clear boundaries, and maintained Q 15min safety checks. Restraints/seclusion/emergency medication: N/A Justification of Continued Inpatient Treatment: Patient needs interruption of current crisis in a safe and therapeutic milieu until stable. Pt needs medication regimen re-established in order to be safely discharged.
[2021-04-14 19:00] VITALS: BP 134/80
[2021-04-14] MEDS: lamoTRIgine 100mg tablet PO SCH (20:29)
[2021-04-14] MEDS: traZODone 50mg tablet PO SCH (20:29)
[2021-04-14] MEDS: lamoTRIgine 25mg tablet PO SCH (20:29)
[2021-04-14] MEDS: atorvastatin 20mg tablet PO SCH (20:29)
[2021-04-14] MEDS: voritoxetine HBr tablet 5 MG TABLET PO SCH (20:30)
--- NOTE | 2021-04-14 20:34 | NUR ---
RN PROGRESS NOTE: LEGAL HOLD: 5250 for DTS REASON FOR ADMIT: Client reports major depressive disorder with passive thoughts of suicide. Client reports "I just don't want to live." Denies a plan. Client is unable to contract for safety. THIS SHIFT: Client isolates in room. Client was lying in the dark with a blanket over her eye's. She stated, "I just want it to be dark". Clients' affect is flat and her mood is depressed. Client reported some nausea r/t medications, but otherwise is not experiencing any other side effects. Client speaks in a low, soft voice. She refused snack, preferring to stay in her room. Client feels client medications are helping to improve her mood. Stayed in her room through out shift. DISCHARGE: Client needs further medication adjustment.
[2021-04-15] MEDS: metFORMIN 500mg tablet PO SCH ×2 (07:59→12:00)
[2021-04-15] MEDS: levoTHYROXINE 125mcg tablet PO SCH (07:59)
[2021-04-15] MEDS: lithium carbonate 300mg SR tablet (LithoBID) PO SCH ×2 (07:59→20:43)
[2021-04-15] MEDS: busPIRone 5mg tablet PO SCH (07:59)
[2021-04-15] MEDS: linagliptin 5mg tablet PO SCH (07:59)
[2021-04-15 08:00] VITALS: BP 129/87
--- NOTE | 2021-04-15 13:16 | NUR ---
Nursing Progress Note: Legal hold: 5250 for DTS (hearing 04/16/21) Report received from Sagrario Islas RN with use of SBAR Why are they here: Pt presented to [facility] ER on 04[facility]21 via EMS sent from [facility] for SI/DTS. Pt has a Hx of Bipolar, Type II & PTSD. Pt has a HX of 2 previous suicide attempts by overdosing on medication. Pt states that she got sick with a virus and stopped taking her meds a couple of weeks ago, she was transferred at work, and she was overcharged on her rent contributing to increased depression with SI. Assessment What has happened this shift: Received Pt in bed sleeping w/o distress at the beginning of the shift. Pt woke and was cooperative with vitals. Pt did not eat breakfast and remained in bed. Pt took AM meds w/o issue and remained in bed. Pt is quiet and uses few words to answer qs. Pt is depressed and overall cooperative but wants to be left alone. Pt denies current SI. Pt remained in bed the majority of the shift and also did not eat lunch, although encouraged to do so, this show card writer offered sealed food patient still declined. Patient did have a small emeses this last night, reported this morning "I did not make it to the bathroom in time for the light to come on so I hit the floor". This conversation was unsolicited, this was during bs check. This information was passed onto provider. It was believed that Metformin was causing the upset stomach due to the fact that she is not eating. S/I, H/I: Denies A/VH: Denies Sleep: See Sleep Assessment ADL's: Independent, no shower today actually no shower since intake. Group attendance: N/A Were meds taken: Yes Any med S/E: none reported nor observed Mental Status Exam Appearance: Slightly disheveled, wearing personal clothing. Eye contact: Poor Behavior: Isolative, Guarded Speech: Soft, Slow Mood: Depressed Affect: Flat Thought process: Linear Thought Content: unable to access Cognition: A&Ox4 Insight: poor to fair Judgment: poor Interventions PRN's used: None Therapeutic interventions: Maintained a safe and therapeutic environment, ensured contract for safety, provided clear and simple instructions, monitored behaviors and need for intervention, provided redirection and boundaries as needed, maintained structure and clear boundaries, and maintained Q 15min safety checks. Restraints/seclusion/emergency medication: N/A Justification of Continued Inpatient Treatment: Patient needs interruption of current crisis in a safe and therapeutic milieu until stable. Pt needs medication regimen re-established in order to be safely discharged. Today Ivy's inability to communicated due to her mental illness, this is blocking her ability to plan for a safe.
[2021-04-15 19:17] VITALS: BP 134/77
[2021-04-15] MEDS: atorvastatin 20mg tablet PO SCH (20:40)
[2021-04-15] MEDS: lamoTRIgine 25mg tablet PO SCH (20:40)
[2021-04-15] MEDS: traZODone 50mg tablet PO SCH (20:40)
[2021-04-15] MEDS: lamoTRIgine 100mg tablet PO SCH (20:41)
[2021-04-15] MEDS: voritoxetine HBr tablet 5 MG TABLET PO SCH (20:42)
[2021-04-15] MEDS: sucralfate 1gm/10ml UD suspension PO SCH (20:42)
--- NOTE | 2021-04-16 03:09 | NUR ---
Nursing Progress Note: Legal hold: 5150 for DTS Report received from Juarez THOMAS with use of SBAR Why are they here: Pt presented to [facility] ER on 04/10/21 via EMS sent from [facility] for SI/DTS. Pt has a Hx of Bipolar, Type II & PTSD. Pt has a HX of 2 previous suicide attempts by overdosing on medication. Pt states that she got sick with a virus and stopped taking her meds a couple of weeks ago, she was transferred at work, and she was overcharged on her rent contributing to increased depression with SI. Assessment What has happened this shift: Pt isolated to room all shift. Declined to come to group room for snack declined to have a piece of pizza in room. Pt would answer yes or no questions only. Pt c/o nausea to tech but refused any medication for nausea. S/I, H/I: Pt denies A/VH: Pt denies Sleep: asleep at this time ADL's: Independent, no shower today Group attendance: N/A Were meds taken: Yes Any med S/E: None noted Mental Status Exam Appearance: Wearing her own clothes. Hair disheveled Eye contact: Poor Behavior: Withdrawn, depressed, isolative, guarded, annoyed Speech: Soft, mumbled Mood: Depressed Affect: Flat Thought process: Circumstantial Thought Content: Unable to access Cognition: Alert Insight: poor Judgment: poor Interventions PRN's used: None Therapeutic interventions: Maintained a safe and therapeutic environment, ensured contract for safety, provided clear and simple instructions, monitored behaviors and need for intervention, provided redirection and boundaries as needed, maintained structure and clear boundaries, and maintained Q 15min safety checks. Restraints/seclusion/emergency medication: N/A Justification of Continued Inpatient Treatment: Patient needs interruption of current crisis in a safe and therapeutic milieu until stable. Pt needs medication regimen re-established in order to be safely discharged.
[2021-04-16] MEDS: pantoprazole 40mg Tablet.DR PO SCH (07:30)
[2021-04-16 08:05] VITALS: BP 135/85
[2021-04-16] MEDS: sucralfate 1gm/10ml UD suspension PO SCH ×4 (08:31→20:52)
[2021-04-16] MEDS: lithium carbonate 300mg SR tablet (LithoBID) PO SCH ×2 (08:32→20:00)
[2021-04-16] MEDS: levoTHYROXINE 125mcg tablet PO SCH (08:32)
[2021-04-16] MEDS: linagliptin 5mg tablet PO SCH (08:45)
--- NOTE | 2021-04-16 09:58 | NUR ---
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 Hx T2DM A1C 6.6. Pt continues to refuse almost all meals on regular diet since admit not meeting needs. Noted N/V at times since admit though RN reports all have been pt reported and not witnessed episodes. Pt meds are being changed to minimize meds w/ N/V as potential side effects per EMR. RN reports pt is taking meds w/ last reported N/V episode last night and pt to trial chicken broth at this time to see if tolerates. Will send yogurt TIDWM in hopes of acceptance for some kcal intake this admit. LBM 04/13 per EMR. IF pt N/V continues may benefit from GI imaging as medically indicated. Will monitor for further PO trends, GI symptoms, and additional protein/kcal needs this admit. Rec: 1. continue regular diet; IF PO improves to at least 65% avg consistent intake consider carb controlled/heart healthy diet w/ elevated lipid panel on admit; encourage PO 2. yogurt TIDWM; monitor for PO tolerance and ONS needs 3. bowel care per rx 4. weekly wts Addendum: 04/16/21 at [address] Amended: Links added.
--- NOTE | 2021-04-16 14:54 | NUR ---
Nursing Progress Note: Legal hold: 5250 for DTS Report received from Beronica THOMAS with use of SBAR Why are they here: Pt presented to [facility] ER on 04/10/21 via EMS sent from [facility] for SI/DTS. Pt has a Hx of Bipolar, Type II & PTSD. Pt has a HX of 2 previous suicide attempts by overdosing on medication. Pt states that she got sick with a virus and stopped taking her meds a couple of weeks ago, she was transferred at work, and she was overcharged on her rent contributing to increased depression with SI. Assessment What has happened this shift: Received Pt in bed sleeping w/o distress at the beginning of the shift. Pt woke and was cooperative with vitals. Pt did not eat breakfast and remained in bed. Pt took AM meds w/o issue and remained in bed. Pt is quiet and uses few words to answer qs. Pt is depressed and overall cooperative but wants to be left alone. Pt denies current SI. Pt remained in bed the majority of the shift and also did not eat lunch, although encouraged to do so, this functional tester typewriters offered sealed food patient still declined, patient did drink 3oz of chicken broth. Patient did have a small emeses this last night, reported this morning, not reported to staff last night. patient was asked to change room due to a new intake, Patient became tearful but did moved to new room. Irt should be noted that Ivy has not eaten since intake. There has been no change in her mood, affect or presentation in the past few days, patient remain helpless and hopeless. S/I, H/I: Denies A/VH: Denies Sleep: See Sleep Assessment ADL's: Independent, no shower today actually no shower since intake. Fresh clothes given to patient, she did not change her clothes. Group attendance: N/A Were meds taken: Yes Any med S/E: none reported nor observed Mental Status Exam Appearance: Slightly disheveled, wearing personal clothing. Eye contact: Poor Behavior: Isolative, Guarded Speech: Soft, Slow Mood: Depressed Affect: Flat Thought process: Linear Thought Content: unable to access Cognition: A&Ox4 Insight: poor to fair Judgment: poor Interventions PRN's used: None Therapeutic interventions: Maintained a safe and therapeutic environment, ensured contract for safety, provided clear and simple instructions, monitored behaviors and need for intervention, provided redirection and boundaries as needed, maintained structure and clear boundaries, and maintained Q 15min safety checks. Restraints/seclusion/emergency medication: N/A Justification of Continued Inpatient Treatment: Patient needs interruption of current crisis in a safe and therapeutic milieu until stable. Pt needs medication regimen re-established in order to be safely discharged. Today Ivy's inability to communicated due to her mental illness, this is blocking her ability to plan for a safe.
--- NOTE | 2021-04-16 16:46 | NUR ---
5250 Hearing for DTS, up held
[2021-04-16] MEDS: lamoTRIgine 100mg tablet PO SCH (20:52)
[2021-04-16] MEDS: traZODone 50mg tablet PO SCH (20:52)
[2021-04-16] MEDS: lamoTRIgine 25mg tablet PO SCH (20:53)
[2021-04-16] MEDS: atorvastatin 20mg tablet PO SCH (20:53)
[2021-04-16 20:56] VITALS: BP 157/104
[2021-04-16] MEDS: voritoxetine HBr tablet 5 MG TABLET PO SCH (21:00)
--- NOTE | 2021-04-17 01:49 | NUR ---
Nursing Progress Note: Legal hold: 5250 for DTS Report received from RN with use of SBAR Why are they here: Pt presented to [facility] ER on 04/10/21 via EMS sent from [facility] for SI/DTS. Pt has a Hx of Bipolar, Type II & PTSD. Pt has a HX of 2 previous suicide attempts by overdosing on medication. Pt states that she got sick with a virus and stopped taking her meds a couple of weeks ago, she was transferred at work, and she was overcharged on her rent contributing to increased depression with SI. Assessment What has happened this shift: Received Pt in bed sleeping w/o distress at the beginning of the shift. Pt woke and was cooperative with vitals. Pt isolated to her room this shift refused Medications and snack. Pt just lay there staring not responding to this nurse. Pt stayed in bed the rest of the shift. S/I, H/I: Denies A/VH: Denies Sleep: See Sleep Hrs. ADL's: Independent, no shower today actually no shower since intake. Fresh clothes given to patient, she did not change her clothes. Group attendance: N/A Were meds taken: Yes Any med S/E: none reported nor observed Mental Status Exam Appearance: Slightly disheveled, wearing personal clothing. Eye contact: Poor Behavior: Isolative, Guarded Speech: Soft, Slow Mood: Depressed Affect: Flat Thought process: Linear Thought Content: unable to access Cognition: A&Ox4 Insight: poor to fair Judgment: poor Interventions PRN's used: None Therapeutic interventions: Maintained a safe and therapeutic environment, ensured contract for safety, provided clear and simple instructions, monitored behaviors and need for intervention, provided redirection and boundaries as needed, maintained structure and clear boundaries, and maintained Q 15min safety checks. Restraints/seclusion/emergency medication: N/A Justification of Continued Inpatient Treatment: Patient needs interruption of current crisis in a safe and therapeutic milieu until stable. Pt needs medication regimen re-established in order to be safely discharged. Today Ivy's inability to communicated due to her mental illness, this is blocking her ability to plan for a safe.
[2021-04-17 07:00] VITALS: BP 161/75
[2021-04-17] MEDS: sucralfate 1gm/10ml UD suspension PO SCH ×4 (07:00→20:00)
--- NOTE | 2021-04-17 07:00 | NUR ---
5250 Hearing 04/16/21 @1530, college service officer Heaven Sanchez Certified addition hold form the of the 5250. for DTS Patient did not attend nor contest, this commercial underwriter asked patient 2 different times, she just shook her head no both times, When this commercial underwriter told patient that [facility] thinks she would benefit form more time, patient shook her head in the motion of yes. Admission date 04/11/21 Date of 5151: 04/11/21 Written by: Kailee Mental [facility] Criteria : DTS Summary, Patient stopped taking her medication, showing signs of failure to thrive, not eating or drinking is only self isolation. Utox:negative Date 524904/14/[address] Martell Criteria: DTS Summary: Patient has show no improvement since intake, patient is not eating, drinking nor doing any type of ADL's Per 525, "patient is worsening in her condition at this point. She expresses anhedonia that she requires writing of the 5250 in order to keep her safe. Dx Mood D/S NOS Food: not eating time 9 meals as of today sleeping, sleeps all night and is resting all day but ealiy aroused ADLS, None done since intake, patient has clean clothes at bed side Snf, Rents an apartment with her dog, dog is with cousin Medication: Krebs 600 mg BID Trazodone 200mg Q HS Lamictal 125mg Q HS Along with Sandy III medication PRN: none
[2021-04-17] MEDS: levoTHYROXINE 125mcg tablet PO SCH (08:03)
[2021-04-17] MEDS: linagliptin 5mg tablet PO SCH (08:03)
[2021-04-17] MEDS: lithium carbonate 300mg SR tablet (LithoBID) PO SCH ×2 (08:03→20:00)
[2021-04-17] MEDS: pantoprazole 40mg Tablet.DR PO SCH (08:03)
--- NOTE | 2021-04-17 11:55 | NUR ---
Nursing Progress Note: Legal hold: 5250 for DTS Report received from Lindsey THOMAS with use of SBAR Why are they here: Pt presented to [facility] ER on 04/10/21 via EMS sent from [facility] for SI/DTS. Pt has a Hx of Bipolar, Type II & PTSD. Pt has a HX of 2 previous suicide attempts by overdosing on medication. Pt states that she got sick with a virus and stopped taking her meds a couple of weeks ago, she was transferred at work, and she was overcharged on her rent contributing to increased depression with SI. Assessment What has happened this shift: Received Pt in bed sleeping w/o distress at the beginning of the shift. Pt woke and was cooperative with vitals. Pt did eat breakfast today this is the first meal she has eatten, patient went straight back to bed. Pt took AM meds w/o issue and remained in bed. Pt is quiet and uses few words to answer qs. Pt is depressed and overall cooperative but wants to be left alone. Pt denies current SI. Pt remained in bed the majority of the shift. There has been a slight change in her mood, affect, patient is now eating in the day room and has changed her clothes and has asked to have her clothes cleaned. Patient remain helpless and hopeless. S/I, H/I: Denies A/VH: Denies Sleep: See Sleep Assessment ADL's: Independent, patient showered last night with some prompting Group attendance: N/A Were meds taken: Yes Any med S/E: none reported nor observed Mental Status Exam Appearance: Slightly disheveled, wearing green scrubs Eye contact: Poor Behavior: Isolative, Guarded Speech: Soft, Slow Mood: Depressed Affect: Flat Thought process: Linear Thought Content: unable to access Cognition: A&Ox4 Insight: poor to fair Judgment: poor Interventions PRN's used: None Therapeutic interventions: Maintained a safe and therapeutic environment, ensured contract for safety, provided clear and simple instructions, monitored behaviors and need for intervention, provided redirection and boundaries as needed, maintained structure and clear boundaries, and maintained Q 15min safety checks. Restraints/seclusion/emergency medication: N/A Justification of Continued Inpatient Treatment: Patient needs interruption of current crisis in a safe and therapeutic milieu until stable. Pt needs medication regimen re-established in order to be safely discharged. Today Ivy's inability to communicated due to her mental illness, this is blocking her ability to plan for a safe.
[2021-04-17 20:00] VITALS: BP 147/83
[2021-04-17] MEDS: traZODone 50mg tablet PO SCH (20:00)
[2021-04-17] MEDS: atorvastatin 20mg tablet PO SCH (20:01)
[2021-04-17] MEDS: lamoTRIgine 100mg tablet PO SCH (20:01)
[2021-04-17] MEDS: lamoTRIgine 25mg tablet PO SCH (20:01)
[2021-04-17] MEDS: voritoxetine HBr tablet 5 MG TABLET PO SCH (20:02)
--- NOTE | 2021-04-18 00:47 | NUR ---
Nursing Progress Note: Legal hold: 5250 for DTS Report received from RN with use of SBAR Why are they here: Pt presented to [facility] ER on 04/10/21 via EMS sent from [facility] for SI/DTS. Pt has a Hx of Bipolar, Type II & PTSD. Pt has a HX of 2 previous suicide attempts by overdosing on medication. Pt states that she got sick with a virus and stopped taking her meds a couple of weeks ago, she was transferred at work, and she was overcharged on her rent contributing to increased depression with SI. Assessment What has happened this shift: Received Pt up in rec room on the phone w/o distress at the beginning of the shift. Pt returned to her room Pt was cooperative with vitals. Pt took Hs meds w/o issue and remained in bed. Pt is quiet and uses few words to answer qs. Pt appears depressed but wants to be left alone. Pt denies current SI. Pt remained in bed the majority of the shift. S/I, H/I: Denies A/VH: Denies Sleep: See Sleep Assessment ADL's: Independent, patient showered last night with some prompting Group attendance: N/A Were meds taken: Yes Any med S/E: none reported nor observed Mental Status Exam Appearance: Slightly disheveled, wearing green scrubs Eye contact: Poor Behavior: Isolative, Guarded Speech: Soft, Slow Mood: Depressed Affect: Flat Thought process: Linear Thought Content: unable to access Cognition: A&Ox4 Insight: poor to fair Judgment: poor Interventions PRN's used: None Therapeutic interventions: Maintained a safe and therapeutic environment, ensured contract for safety, provided clear and simple instructions, monitored behaviors and need for intervention, provided redirection and boundaries as needed, maintained structure and clear boundaries, and maintained Q 15min safety checks. Restraints/seclusion/emergency medication: N/A Justification of Continued Inpatient Treatment: Patient needs interruption of current crisis in a safe and therapeutic milieu until stable. Pt needs medication regimen re-established in order to be safely discharged. Today Ivy's inability to communicated due to her mental illness, this is blocking her ability to plan for a safe.
[2021-04-18] MEDS: sucralfate 1gm/10ml UD suspension PO SCH ×4 (07:49→20:17)
[2021-04-18] MEDS: levoTHYROXINE 125mcg tablet PO SCH (07:50)
[2021-04-18] MEDS: linagliptin 5mg tablet PO SCH (07:50)
[2021-04-18] MEDS: lithium carbonate 300mg SR tablet (LithoBID) PO SCH ×2 (07:50→20:17)
[2021-04-18] MEDS: pantoprazole 40mg Tablet.DR PO SCH (07:50)
[2021-04-18 08:22] VITALS: BP 139/82
--- NOTE | 2021-04-18 15:16 | NUR ---
Nursing Progress Note: Legal hold: 5250 for DTS Report received from Lindsey THOMAS with use of SBAR Why are they here: Pt presented to [facility] ER on 04/10/21 via EMS sent from [facility] for SI/DTS. Pt has a Hx of Bipolar, Type II & PTSD. Pt has a HX of 2 previous suicide attempts by overdosing on medication. Pt states that she got sick with a virus and stopped taking her meds a couple of weeks ago, she was transferred at work, and she was overcharged on her rent contributing to increased depression with SI. Assessment What has happened this shift: Pt c/o nausea this morning. Pt is depressed. Pt reported, "I don't feel as good as yesterday." When asked pt if she was having thoughts of harming herself, pt replied, "yeah." When asked pt what kind of thoughts she was having or if she had any plan of how she might harm herself pt would not elaborate and did not answer. Pt has slow speech and delayed responses. Pt could not remember when she had her last bowel movement but per PA's notes, she reported some diarrhea on 04/17/21. Pt is isolative to self and room. Pt slept for most of the day. Pt refused breakfast and lunch. Pt refused snacks. S/I, H/I: Pt denied HI, admitted to having some thoughts of self harm. A/VH: Pt denies Sleep: Pt slept 8.25 hours last night per noc shift report, pt napped for much of the day. ADL's: Independent Group attendance: No groups today Were meds taken: Yes Any med S/E: Pt reported nausea. Mental Status Exam Appearance: Obese dark haired, dark skinned younger appearing woman dressed in clean green hospital scrubs. Eye contact: Poor Behavior: Isolative to self and room, refusing meals. Speech: Soft, Slow, poverty of speech. Mood: Depressed Affect: Flat, anhedonic. Thought process: Poverty of thought, possible though blocking. Thought Content: She doesn't feel as good as she did yesterday. Cognition: A&Ox4 Insight: Poor Judgment: Poor Interventions PRN's used: None Therapeutic interventions: 1:1 assessment, encouraged pt to express her thoughts and feelings, maintained a safe and therapeutic environment, medication administration/education/monitoring, encouraged pt to eat, and maintained Q 15min safety checks. Restraints/seclusion/emergency medication: N/A Justification of Continued Inpatient Treatment: Pt in need of crisis interruption and medication adjustment and monitoring in a safe and therapeutic environment until stable and no longer a danger to self. Pt continues to endorse depression with SI, pt is anhedonic and refusing meals.
[2021-04-18 20:00] VITALS: BP 146/83
[2021-04-18] MEDS: traZODone 50mg tablet PO SCH (20:17)
[2021-04-18] MEDS: lamoTRIgine 25mg tablet PO SCH (20:17)
[2021-04-18] MEDS: lamoTRIgine 100mg tablet PO SCH (20:18)
[2021-04-18] MEDS: voritoxetine HBr tablet 5 MG TABLET PO SCH (20:18)
[2021-04-18] MEDS: atorvastatin 20mg tablet PO SCH (20:18)
--- NOTE | 2021-04-19 01:01 | NUR ---
Nursing Progress Note: Legal hold: 5250 for DTS Report received from WILLIAM Latif with use of SBAR Why are they here: Pt presented to [facility] ER on 04/10/21 via EMS sent from [facility] for SI/DTS. Pt has a Hx of Bipolar, Type II & PTSD. Pt has a HX of 2 previous suicide attempts by overdosing on medication. Pt states that she got sick with a virus and stopped taking her meds a couple of weeks ago, she was transferred at work, and she was overcharged on her rent contributing to increased depression with SI. Assessment What has happened this shift: pt isolated to her room all evening but was cooperative for 1:1. Pt denies any complaints other than stomach is upset, and pt reports occasional thoughts of suicide. Pt appears depressed and does not want to discuss much. Pt reports that she is able to eat a little but if the food was better shed have an easier time eating. Pt accepted hs meds without issue. S/I, H/I: endorses occasional SI A/VH: Denies Sleep: See Sleep Assessment ADL's: Independent Group attendance: N/A Were meds taken: Yes Any med S/E: none reported nor observed Mental Status Exam Appearance: Slightly disheveled, wearing green scrubs Eye contact: fair Behavior: Isolative, Guarded Speech: Soft, Slow Mood: Depressed Affect: Flat Thought process: Linear Thought Content: unable to access Cognition: A&Ox4 Insight: poor to fair Judgment: poor Interventions PRN's used: None Therapeutic interventions: Maintained a safe and therapeutic environment, ensured contract for safety, provided clear and simple instructions, monitored behaviors and need for intervention, provided redirection and boundaries as needed, maintained structure and clear boundaries, and maintained Q 15min safety checks. Restraints/seclusion/emergency medication: N/A Justification of Continued Inpatient Treatment: Patient needs interruption of current crisis in a safe and therapeutic milieu until stable. Pt needs medication regimen re-established in order to be safely discharged. Today Ivy's inability to communicated due to her mental illness, this is blocking her ability to plan for a safe.
[2021-04-19 08:00] VITALS: BP 125/77
[2021-04-19] MEDS: pantoprazole 40mg Tablet.DR PO SCH (08:25)
[2021-04-19] MEDS: linagliptin 5mg tablet PO SCH (08:25)
[2021-04-19] MEDS: levoTHYROXINE 125mcg tablet PO SCH (08:25)
[2021-04-19] MEDS: lithium carbonate 300mg SR tablet (LithoBID) PO SCH ×2 (08:26→20:13)
[2021-04-19] MEDS: sucralfate 1gm/10ml UD suspension PO SCH ×4 (08:26→20:12)
--- NOTE | 2021-04-19 12:16 | NUR ---
Reassessment: Patient's PO intake appears to be slowly improving. Pt with 50% PO intake at lunch 04/17 however then down to 25% PO intake at following meals with refusals of breakfast and lunch 04/18. PO intake up to 50% at dinner 04/18 and 75-100% at breakfast this morning. Hopeful that appetite and willingness to eat is improving. Per concrete curer pt reports it would be easier to eat if the food was better. Recommend offering snacks and honoring food preferences to optimize PO intake. LBM 04/18. Will continue to follow closely and make recommendations as appropriate. Rec: 1. continue regular diet; IF PO improves to at least 65% avg consistent intake consider carb controlled diet; encourage PO intake, offer snacks and honor food preferences 2. yogurt TIDWM; monitor for PO tolerance and ONS needs 3. bowel care per rx 4. weekly scaled wts Addendum: 04/19/21 at [address] Amended: Links added.
--- NOTE | 2021-04-19 15:22 | NUR ---
Nursing Progress Note: Legal hold: 5250 for DTS Report received from Lindsey THOMAS with use of SBAR Why are they here: Pt presented to [facility] ER on 04/10/21 via EMS sent from [facility] for SI/DTS. Pt has a Hx of Bipolar, Type II & PTSD. Pt has a HX of 2 previous suicide attempts by overdosing on medication. Pt states that she got sick with a virus and stopped taking her meds a couple of weeks ago, she was transferred at work, and she was overcharged on her rent contributing to increased depression with SI. Assessment What has happened this shift: Pt showered before breakfast today, pt had a brighter affect. Encouraged pt to come to the dining room for breakfast. Pt reported that she gets muscle cramps when she walks. Educated pt on electrolytes and the importance of good nutrition for adequate levels of potassium, calcium, and magnesium, and that when levels are low muscle cramps may occur. Pt ate 75% of breakfast in her room. Pt reported it was good, and that she didn't realize how hungry she was until she started eating. Pt denied SI today. Pt reported that she started menstruating today but it is strange because she just had her period last week. Pt states that she does not usually spot between periods. Pt had a lithium level drawn today, level was 1.1. Pt did walk down to the dining room for lunch though per documentation, only ate 25 % of her protein. Pt conversed more with this RN today and smiled a couple of times. S/I, H/I: Pt denies A/VH: Pt denies Sleep: Pt slept 8.75 hours last night per noc shift report, pt was awake for most of the day, took short naps. ADL's: Independent Group attendance: No groups today Were meds taken: Yes Any med S/E: None noted or reported. Mental Status Exam Appearance: Obese dark haired, dark skinned younger appearing woman dressed in clean green hospital scrubs. Eye contact: Fair to good. Behavior: Pleasant, cooperative, more engaged in ADLs today. Speech: Clear, soft. Mood: Depressed Affect: Blunted with brightening. Thought process: Linear Thought Content: She feels better today, she is puzzled that she started her period today when she just finished it last week. Cognition: A&Ox4 Insight: Fair Judgment: Fair Interventions PRN's used: None Therapeutic interventions: 1:1 assessment, encouraged pt to express her thoughts and feelings, therapeutic conversation, active listening, maintained a safe and therapeutic environment, ensured contract for safety, medication administration/education/monitoring, encouraged pt to eat and come to dining room for meals, and maintained Q 15 minute safety checks. Restraints/seclusion/emergency medication: N/A Justification of Continued Inpatient Treatment: Pt in need of crisis interruption and medication adjustment and monitoring in a safe and therapeutic environment until stable and no longer a danger to self.
[2021-04-19 19:00] VITALS: BP 132/78
[2021-04-19] MEDS: traZODone 50mg tablet PO SCH (20:12)
[2021-04-19] MEDS: lamoTRIgine 100mg tablet PO SCH (20:13)
[2021-04-19] MEDS: lamoTRIgine 25mg tablet PO SCH (20:13)
[2021-04-19] MEDS: voritoxetine HBr tablet 5 MG TABLET PO SCH (20:13)
[2021-04-19] MEDS: atorvastatin 20mg tablet PO SCH (20:14)
--- NOTE | 2021-04-20 00:07 | NUR ---
Nursing Progress Note: Legal hold: 5250 for DTS Report received from WILLIAM Cheung with use of SBAR Why are they here: Pt presented to [facility] ER on 04/10/21 via EMS sent from [facility] for SI/DTS. Pt has a Hx of Bipolar, Type II & PTSD. Pt has a HX of 2 previous suicide attempts by overdosing on medication. Pt states that she got sick with a virus and stopped taking her meds a couple of weeks ago, she was transferred at work, and she was overcharged on her rent contributing to increased depression with SI. Assessment What has happened this shift: pt continues to isolate to her room, reporting that she is depressed but not suicidal today. Pt didnt eat dinner, but reported that she ate lunch and breakfast. pt reports that her stomach doesnt hurt, but doesnt feel well. Pt accepted hs meds without issue. S/I, H/I: denies A/VH: Denies Sleep: See Sleep Assessment ADL's: Independent Group attendance: N/A Were meds taken: Yes Any med S/E: none reported nor observed Mental Status Exam Appearance: Slightly disheveled, wearing green scrubs Eye contact: fair Behavior: Isolative, Guarded Speech: Soft, Slow Mood: Depressed Affect: Flat Thought process: Linear Thought Content: unable to access Cognition: A&Ox4 Insight: poor to fair Judgment: poor Interventions PRN's used: None Therapeutic interventions: Maintained a safe and therapeutic environment, ensured contract for safety, provided clear and simple instructions, monitored behaviors and need for intervention, provided redirection and boundaries as needed, maintained structure and clear boundaries, and maintained Q 15min safety checks. Restraints/seclusion/emergency medication: N/A Justification of Continued Inpatient Treatment: Patient needs interruption of current crisis in a safe and therapeutic milieu until stable. Pt needs medication regimen re-established in order to be safely discharged. Today Ivy's inability to communicated due to her mental illness, this is blocking her ability to plan for a safe.
[2021-04-20] MEDS: sucralfate 1gm/10ml UD suspension PO SCH ×4 (07:36→20:11)
[2021-04-20 08:00] VITALS: BP 111/70
[2021-04-20] MEDS: pantoprazole 40mg Tablet.DR PO SCH (08:06)
[2021-04-20] MEDS: levoTHYROXINE 125mcg tablet PO SCH (08:06)
[2021-04-20] MEDS: linagliptin 5mg tablet PO SCH (08:06)
[2021-04-20] MEDS: lithium carbonate 300mg SR tablet (LithoBID) PO SCH ×2 (08:06→20:11)
--- NOTE | 2021-04-20 17:23 | NUR ---
Nursing Progress Note: Legal hold: 5250 for DTS Report received from Juarez THOMAS with use of SBAR Why are they here: Pt presented to [facility] ER on 04/10/21 via EMS sent from [facility] for SI/DTS. Pt has a Hx of Bipolar, Type II & PTSD. Pt has a HX of 2 previous suicide attempts by overdosing on medication. Pt states that she got sick with a virus and stopped taking her meds a couple of weeks ago, she was transferred at work, and she was overcharged on her rent contributing to increased depression with SI. Assessment What has happened this shift: Pt appeared to be having a bad day this morning. Pt appeared depressed, pt did not wish to talk. Pt did not get up for breakfast or lunch. Pt denied nausea. Pt stated she is still menstruating. Pt did nod her head yes when asked if she was having SI, pt would not look at this RN or elaborate on her thoughts. Pt currently is out of bed and brushing her teeth. Pt looks brighter than she did this morning. Pt plans on coming down to dinner. S/I, H/I: Pt nodded her head "yes" to SI. A/VH: Pt denies Sleep: Pt slept 7 hours last night per noc shift report. ADL's: Independent Group attendance: No groups today Were meds taken: Yes Any med S/E: None noted or reported. Mental Status Exam Appearance: Obese dark haired, dark skinned younger appearing woman dressed in clean green hospital scrubs. Eye contact: Fair Behavior: Withdrawn, isolative to self and room. Speech: Clear, soft, minimal Mood: Depressed Affect: Flat,depressed Thought process: Poverty of thought. Thought Content: Does not wish to talk today. Cognition: A&Ox4 Insight: Fair Judgment: Fair Interventions PRN's used: None Therapeutic interventions: 1:1 assessment, encouraged pt to express her thoughts and feelings, therapeutic conversation, active listening, maintained a safe and therapeutic environment, medication administration/education/monitoring, encouraged pt to eat and to come out of her room, and maintained Q 15 minute safety checks. Restraints/seclusion/emergency medication: N/A Justification of Continued Inpatient Treatment: Pt in need of crisis interruption and medication adjustment and monitoring in a safe and therapeutic environment until stable and no longer a danger to self.
[2021-04-20 19:00] VITALS: BP 146/82
[2021-04-20] MEDS: voritoxetine HBr tablet 5 MG TABLET PO SCH (20:11)
[2021-04-20] MEDS: lamoTRIgine 100mg tablet PO SCH (20:12)
[2021-04-20] MEDS: lamoTRIgine 25mg tablet PO SCH (20:12)
[2021-04-20] MEDS: atorvastatin 20mg tablet PO SCH (20:12)
[2021-04-20] MEDS: traZODone 50mg tablet PO SCH (20:12)
[2021-04-20] MEDS ORDERED: ondansetron 4mg rapidly disintigrating tab PO ONE (21:25)
--- NOTE | 2021-04-21 02:01 | NUR ---
Nursing Progress Note: Legal hold: 5250 for DTS Report received from WILLIAM Cheung with use of SBAR Why are they here: Pt presented to [facility] ER on 04/10/21 via EMS sent from [facility] for SI/DTS. Pt has a Hx of Bipolar, Type II & PTSD. Pt has a HX of 2 previous suicide attempts by overdosing on medication. Pt states that she got sick with a virus and stopped taking her meds a couple of weeks ago, she was transferred at work, and she was overcharged on her rent contributing to increased depression with SI. Assessment What has happened this shift: pt continues to isolate to her room, still appears very depressed, possibly worse tonight. Pt denies eating anything today, states that she is just not hungry. Pt would barely respond to answers and most answers were just shrugging her shoulders. When asked if she is suicidal, pt responds, I dont know. Pt became nauseous at 2130, requested broth to settle her stomach. Pt later came to this rn and stated that she had just vomited. Pt given Zofran with good effect. S/I, H/I: I dont know A/VH: Denies Sleep: See Sleep Assessment ADL's: Independent Group attendance: N/A Were meds taken: Yes Any med S/E: none reported nor observed Mental Status Exam Appearance: Slightly disheveled, wearing green scrubs Eye contact: fair Behavior: Isolative, Guarded Speech: Soft, Slow Mood: Depressed Affect: Flat Thought process: Linear Thought Content: unable to access Cognition: A&Ox4 Insight: poor to fair Judgment: poor Interventions PRN's used: None Therapeutic interventions: Maintained a safe and therapeutic environment, ensured contract for safety, provided clear and simple instructions, monitored behaviors and need for intervention, provided redirection and boundaries as needed, maintained structure and clear boundaries, and maintained Q 15min safety checks. Restraints/seclusion/emergency medication: N/A Justification of Continued Inpatient Treatment: Patient needs interruption of current crisis in a safe and therapeutic milieu until stable. Pt needs medication regimen re-established in order to be safely discharged. Today Ivy's inability to communicated due to her mental illness, this is blocking her ability to plan for a safe.
[2021-04-21 08:00] VITALS: BP 159/92
[2021-04-21] MEDS: pantoprazole 40mg Tablet.DR PO SCH (08:01)
[2021-04-21] MEDS: sucralfate 1gm/10ml UD suspension PO SCH ×4 (08:01→20:03)
[2021-04-21] MEDS: levoTHYROXINE 125mcg tablet PO SCH (08:01)
[2021-04-21] MEDS: lithium carbonate 300mg SR tablet (LithoBID) PO SCH ×2 (08:02→20:03)
[2021-04-21] MEDS: linagliptin 5mg tablet PO SCH (08:02)
[2021-04-21] MEDS: ondansetron 4mg rapidly disintigrating tab PO PRN (08:47)
--- NOTE | 2021-04-21 17:26 | NUR ---
Nursing Progress Note: Legal hold: 5250 for DTS Report received from Juarez THOMAS with use of SBAR Why are they here: Pt presented to [facility] ER on 04/10/21 via EMS sent from [facility] for SI/DTS. Pt has a Hx of Bipolar, Type II & PTSD. Pt has a HX of 2 previous suicide attempts by overdosing on medication. Pt states that she got sick with a virus and stopped taking her meds a couple of weeks ago, she was transferred at work, and she was overcharged on her rent contributing to increased depression with SI. Assessment What has happened this shift: Received Pt in bed sleeping w/o distress at the beginning of the shift. Pt woke and was cooperative with vitals. Pt took AM meds and was willing to engage in AM assessments. Pt wanted to eat breakfast, stating breakfast is my favorite meal. Pt c/o vomiting yesterday and was skeptical of eating. Order obtained for Zofran, prn and pt received 4mg with good effect. Pt did not eat lunch. She showered today and spent time brushing her hair. She spent most of the day in her room looking out the window or reading. Pt still endorses SI, although able to smile today and speak with this RN. S/I, H/I: Endorses SI A/VH: Pt denies Sleep: Pt remained awake this shift ADL's: Independent Group attendance: No groups today Were meds taken: Yes Any med S/E: None noted or reported. Mental Status Exam Appearance: Clean and casual in green scrubs Eye contact: Fair Behavior: Withdrawn, isolative to self and room Speech: Clear, soft, minimal Mood: Depressed Affect: Flat Thought process: Poverty of thought Thought Content: Wanting to keep food down Cognition: A&Ox4 Insight: Fair Judgment: Fair Interventions PRN's used: None Therapeutic interventions: 1:1 assessment, encouraged pt to express her thoughts and feelings, therapeutic conversation, active listening, maintained a safe and therapeutic environment, medication administration/education/monitoring, encouraged pt to eat and to come out of her room, and maintained Q 15 minute safety checks. Restraints/seclusion/emergency medication: N/A Justification of Continued Inpatient Treatment: Pt in need of crisis interruption and medication adjustment and monitoring in a safe and therapeutic environment until stable and no longer a danger to self.
[2021-04-21 19:00] VITALS: BP 138/82
[2021-04-21] MEDS: traZODone 50mg tablet PO SCH (20:02)
[2021-04-21] MEDS: voritoxetine HBr tablet 5 MG TABLET PO SCH (20:02)
[2021-04-21] MEDS: lamoTRIgine 100mg tablet PO SCH (20:03)
[2021-04-21] MEDS: lamoTRIgine 25mg tablet PO SCH (20:03)
[2021-04-21] MEDS: atorvastatin 20mg tablet PO SCH (20:04)
--- NOTE | 2021-04-21 23:45 | NUR ---
Nursing Progress Note: Legal hold: 5250 for DTS Report received from WILLIAM Cheung with use of SBAR Why are they here: Pt presented to [facility] ER on 04/10/21 via EMS sent from [facility] for SI/DTS. Pt has a Hx of Bipolar, Type II & PTSD. Pt has a HX of 2 previous suicide attempts by overdosing on medication. Pt states that she got sick with a virus and stopped taking her meds a couple of weeks ago, she was transferred at work, and she was overcharged on her rent contributing to increased depression with SI. Assessment What has happened this shift: pt continues to isolate, appears very depressed. Pt became tearful during 1:1, but does not offer up much as to what is going on internally. Pt stated that her stomach was better and she ate today but is still endorsing being suicidal. Pt did not come out of her room and refused snack. All hs meds were taken without issue. S/I, H/I: endorses si A/VH: Denies Sleep: See Sleep Assessment ADL's: Independent Group attendance: N/A Were meds taken: Yes Any med S/E: none reported nor observed Mental Status Exam Appearance: Slightly disheveled, wearing green scrubs Eye contact: fair Behavior: Isolative, Guarded Speech: Soft, Slow Mood: Depressed Affect: Flat Thought process: Linear Thought Content: unable to access Cognition: A&Ox4 Insight: poor to fair Judgment: poor Interventions PRN's used: None Therapeutic interventions: Maintained a safe and therapeutic environment, ensured contract for safety, provided clear and simple instructions, monitored behaviors and need for intervention, provided redirection and boundaries as needed, maintained structure and clear boundaries, and maintained Q 15min safety checks. Restraints/seclusion/emergency medication: N/A Justification of Continued Inpatient Treatment: Patient needs interruption of current crisis in a safe and therapeutic milieu until stable. Pt needs medication regimen re-established in order to be safely discharged. Today Ivy's inability to communicated due to her mental illness, this is blocking her ability to plan for a safe.
[2021-04-22] MEDS: linagliptin 5mg tablet PO SCH (07:09)
[2021-04-22] MEDS: pantoprazole 40mg Tablet.DR PO SCH (07:09)
[2021-04-22] MEDS: levoTHYROXINE 125mcg tablet PO SCH (07:09)
[2021-04-22] MEDS: sucralfate 1gm/10ml UD suspension PO SCH (07:10)
[2021-04-22] MEDS: lithium carbonate 300mg SR tablet (LithoBID) PO SCH ×2 (07:10→20:14)
[2021-04-22 08:00] VITALS: BP 133/73
--- NOTE | 2021-04-22 09:35 | NUR ---
F/u 04/22: Pt PO remains poor continuing to refuse majority of meals this admit 11 days currently. PO 50% 04/18 dinner and 75% breakfast 04/19 w/ 75% dinner 04/21 essentially only PO intake of meals past 3 days not meeting needs. Per RN note, pt still having SI likely impacting PO trends. Noted nausea 04/14-04/18 likely impacting prior PO intake however no GI symptoms at this time and poor PO persists. LBM 04/[address] d/w RN regarding pt food preferences to hopefully optimize PO meals; pt and RN currently in outdoor area though message to be left for RN. Will recommend Glucerna TIDWM for additional protein/kcals given PO hx in hopes of additional intake this admit; PA notified. Will continue to monitor for PO trends and additional protein/kcal needs. Rec: 1. continue regular diet; IF PO improves to at least 65% avg consistent intake consider carb controlled diet; encourage PO intake, offer snacks and honor food preferences 2. yogurt TIDWM; Glucerna TIDWM pending PA verification in EMR 3. bowel care per rx 4. weekly scaled wts Addendum: 04/22/21 at [address] Amended: Links added.
[2021-04-22] MEDS: sucralfate 1 gm tablet PO SCH ×3 (11:04→20:14)
--- NOTE | 2021-04-22 11:57 | NUR ---
WILLIAM TC: Pt food preferences were obtained. Pt reports disliking milk, all dairy products, and hams; will eat soups, sandwiches, pretzels, chocolate, almond milk, monteiro, eggs, and potatoes. Dietary notified of pt preferences. Rec: 1. continue regular diet; IF PO improves to at least 65% avg consistent intake consider carb controlled diet; encourage PO intake, offer snacks 2. [place] pt food preferences: dislikes milk, dairy, ham. Will send chocolate almond milk TIDWM, chocolate pudding/mousse WS, soups and sandwich BIDLD, and monteiro/eggs/potatoes WB 3. Glucerna TIDWM pending PA verification in EMR 4. bowel care per rx 5. weekly scaled wts Addendum: 04/22/21 at [address] Amended: Links added.
--- NOTE | 2021-04-22 14:55 | NUR ---
Nursing Progress Note: Legal hold: 5250 for DTS Report received from Sophie THOMAS with use of SBAR Why are they here: Pt presented to [facility] ER on 04/10/21 via EMS sent from [facility] for SI/DTS. Pt has a Hx of Bipolar, Type II & PTSD. Pt has a HX of 2 previous suicide attempts by overdosing on medication. Pt states that she got sick with a virus and stopped taking her meds a couple of weeks ago, she was transferred at work, and she was overcharged on her rent contributing to increased depression with SI. Assessment What has happened this shift: Pt continues to spend most, if not all of her time, in her room. Encouraged to eat more and engage more but pt states she still feels very depressed and anxious which makes interactions difficult. Pt was able to smile during this assessment, and while symptoms are still severe she states she is feeling better than when she first was admitted. Pt continues to refuse most meals, stating that things look and even taste good but then she regrets it because of the nausea after her meals. Spoke with pt on behalf of dietary to obtain a list of pt preferred foods; please see note. Pt does not like dairy (because it makes her feel nauseous) or ham. She is a big fan of tuna. Pt observed to be sitting in her chair and looking out the window today, whereas she has been sleeping the entire day on previous shifts. S/I, H/I: Denies SI A/VH: Denies Sleep: Pt slept 7 hrs last night and naps throughout the day ADL's: Independent Group attendance: N/A Were meds taken: Yes Any med S/E: None noted or reported Mental Status Exam Appearance: Clean and casual in green scrubs Eye contact: Fair Behavior: Withdrawn, isolative to self and room Speech: Clear, soft, minimal Mood: Depressed, Anxious Affect: Blunted Thought process: Poverty of thought Thought Content: Wanting to keep food down and not feel nauseous Cognition: A&Ox4 Insight: Fair Judgment: Fair Interventions PRN's used: None Therapeutic interventions: 1:1 assessment, encouraged pt to express her thoughts and feelings, therapeutic conversation, active listening, maintained a safe and therapeutic environment, medication administration/education/monitoring, encouraged pt to eat and to come out of her room, and maintained Q 15 minute safety checks. Restraints/seclusion/emergency medication: N/A Justification of Continued Inpatient Treatment: Pt in need of crisis interruption and medication adjustment and monitoring in a safe and therapeutic environment until stable and no longer a danger to self.
[2021-04-22] MEDS: voritoxetine HBr tablet 5 MG TABLET PO SCH (20:13)
[2021-04-22] MEDS: lamoTRIgine 100mg tablet PO SCH (20:14)
[2021-04-22] MEDS: traZODone 50mg tablet PO SCH (20:14)
[2021-04-22] MEDS: atorvastatin 20mg tablet PO SCH (20:14)
[2021-04-22] MEDS: lamoTRIgine 25mg tablet PO SCH (20:14)
[2021-04-22] MEDS: ondansetron 4mg rapidly disintigrating tab PO PRN (21:32)
--- NOTE | 2021-04-23 01:06 | NUR ---
Nursing Progress Note: Legal hold: 5250 for DTS Report received from WILLIAM Cheung with use of SBAR Why are they here: Pt presented to [facility] ER on 04/10/21 via EMS sent from [facility] for SI/DTS. Pt has a Hx of Bipolar, Type II & PTSD. Pt has a HX of 2 previous suicide attempts by overdosing on medication. Pt states that she got sick with a virus and stopped taking her meds a couple of weeks ago, she was transferred at work, and she was overcharged on her rent contributing to increased depression with SI. Assessment What has happened this shift: pt is still isolating to her room but did not seem as depressed as previous nights. Pt still endorses SI but denies hallucinations. Pts stomach is still bothering her. Pt declined prns initially but later asked for zofran. Pt reports normal bms and accepted hs meds without issue. S/I, H/I: endorses si A/VH: Denies Sleep: See Sleep Assessment ADL's: Independent Group attendance: N/A Were meds taken: Yes Any med S/E: none reported nor observed Mental Status Exam Appearance: Slightly disheveled, wearing green scrubs Eye contact: fair Behavior: Isolative, Guarded Speech: Soft, Slow Mood: Depressed Affect: Flat Thought process: Linear Thought Content: unable to access Cognition: A&Ox4 Insight: poor to fair Judgment: poor Interventions PRN's used: None Therapeutic interventions: Maintained a safe and therapeutic environment, ensured contract for safety, provided clear and simple instructions, monitored behaviors and need for intervention, provided redirection and boundaries as needed, maintained structure and clear boundaries, and maintained Q 15min safety checks. Restraints/seclusion/emergency medication: N/A Justification of Continued Inpatient Treatment: Patient needs interruption of current crisis in a safe and therapeutic milieu until stable. Pt needs medication regimen re-established in order to be safely discharged. Today Ivy's inability to communicated due to her mental illness, this is blocking her ability to plan for a safe.
[2021-04-23 07:17] VITALS: BP 115/75
[2021-04-23] MEDS: pantoprazole 40mg Tablet.DR PO SCH (07:23)
[2021-04-23] MEDS: sucralfate 1 gm tablet PO SCH ×4 (07:23→20:05)
[2021-04-23] MEDS: levoTHYROXINE 125mcg tablet PO SCH (07:23)
[2021-04-23] MEDS: linagliptin 5mg tablet PO SCH (07:23)
[2021-04-23] MEDS: lithium carbonate 300mg SR tablet (LithoBID) PO SCH ×2 (07:23→20:05)
--- NOTE | 2021-04-23 15:22 | NUR ---
Nursing Progress Note: Legal hold: 5250 for DTS Report received from Melinda THOMAS with use of SBAR Why are they here: Pt presented to [facility] ER on 04/10/21 via EMS sent from [facility] for SI/DTS. Pt has a Hx of Bipolar, Type II & PTSD. Pt has a HX of 2 previous suicide attempts by overdosing on medication. Pt states that she got sick with a virus and stopped taking her meds a couple of weeks ago, she was transferred at work, and she was overcharged on her rent contributing to increased depression with SI. Assessment What has happened this shift: Received pt lying in bed. Pt cooperative with am medications and am assessment. Pt has flat affect but denies S.I. and states she's feeling a little bit better. Pt did not get up for breakfast or lunch even with much encouragement. Pt denies hallucinations. S/I, H/I: denies A/VH: Pt denies Sleep: Pt remained awake this shift ADL's: Independent Group attendance: No groups today Were meds taken: Yes Any med S/E: None noted or reported. Mental Status Exam Appearance: Clean and casual in green scrubs Eye contact: Fair Behavior: Withdrawn, isolative to self and room Speech: Clear, soft, minimal Mood: Depressed Affect: Flat Thought process: Poverty of thought Thought Content: Wanting to keep food down Cognition: A&Ox4 Insight: Fair Judgment: Fair Interventions PRN's used: None Therapeutic interventions: 1:1 assessment, encouraged pt to express her thoughts and feelings, therapeutic conversation, active listening, maintained a safe and therapeutic environment, medication administration/education/monitoring, encouraged pt to eat and to come out of her room, and maintained Q 15 minute safety checks. Restraints/seclusion/emergency medication: N/A Justification of Continued Inpatient Treatment: Pt in need of crisis interruption and medication adjustment and monitoring in a safe and therapeutic environment until stable and no longer a danger to self.
[2021-04-23] MEDS: lamoTRIgine 25mg tablet PO SCH (20:04)
[2021-04-23] MEDS: voritoxetine HBr tablet 5 MG TABLET PO SCH (20:04)
[2021-04-23] MEDS: lamoTRIgine 100mg tablet PO SCH (20:05)
[2021-04-23] MEDS: traZODone 50mg tablet PO SCH (20:06)
[2021-04-23] MEDS: atorvastatin 20mg tablet PO SCH (20:06)
[2021-04-23 20:43] VITALS: BP 128/81
[2021-04-23] MEDS: ondansetron 4mg rapidly disintigrating tab PO PRN (21:09)
--- NOTE | 2021-04-24 00:52 | NUR ---
Nursing Progress Note: Legal hold: 5250 for DTS Report received from WILLIAM Cheung with use of SBAR Why are they here: Pt presented to [facility] ER on 04/10/21 via EMS sent from [facility] for SI/DTS. Pt has a Hx of Bipolar, Type II & PTSD. Pt has a HX of 2 previous suicide attempts by overdosing on medication. Pt states that she got sick with a virus and stopped taking her meds a couple of weeks ago, she was transferred at work, and she was overcharged on her rent contributing to increased depression with SI. Assessment What has happened this shift: Pt continues to be very depressed, she spends the evening looking out her window, does not come out of her room. Pt did laugh at a joke this rn made but would not really talk about much. Pt is not suicidal today, and initially denied having stomach pain but later reported that she vomited and required Zofran. Prn Zofran given with good effect. Normal bms are reported. S/I, H/I: denies A/VH: Denies Sleep: See Sleep Assessment ADL's: Independent Group attendance: N/A Were meds taken: Yes Any med S/E: none reported nor observed Mental Status Exam Appearance: Slightly disheveled, wearing green scrubs Eye contact: fair Behavior: Isolative, Guarded Speech: Soft, Slow Mood: Depressed Affect: Flat Thought process: Linear Thought Content: unable to access Cognition: A&Ox4 Insight: poor to fair Judgment: poor Interventions PRN's used: None Therapeutic interventions: Maintained a safe and therapeutic environment, ensured contract for safety, provided clear and simple instructions, monitored behaviors and need for intervention, provided redirection and boundaries as needed, maintained structure and clear boundaries, and maintained Q 15min safety checks. Restraints/seclusion/emergency medication: N/A Justification of Continued Inpatient Treatment: Patient needs interruption of current crisis in a safe and therapeutic milieu until stable. Pt needs medication regimen re-established in order to be safely discharged. Today Ivy's inability to communicated due to her mental illness, this is blocking her ability to plan for a safe.
[2021-04-24] MEDS: pantoprazole 40mg Tablet.DR PO SCH (07:13)
[2021-04-24] MEDS: sucralfate 1 gm tablet PO SCH ×4 (07:13→20:45)
[2021-04-24 07:20] VITALS: BP 157/91
[2021-04-24] MEDS: lithium carbonate 300mg SR tablet (LithoBID) PO SCH ×2 (08:06→20:45)
[2021-04-24] MEDS: levoTHYROXINE 125mcg tablet PO SCH (08:06)
[2021-04-24] MEDS: linagliptin 5mg tablet PO SCH (08:06)
--- NOTE | 2021-04-24 13:02 | NUR ---
Nursing Progress Note: Legal hold: 5250 for DTS Report received from WILLIAM Cheung with use of SBAR Why are they here: Pt presented to [facility] ER on 04/10/21 via EMS sent from [facility] for SI/DTS. Pt has a Hx of Bipolar, Type II & PTSD. Pt has a HX of 2 previous suicide attempts by overdosing on medication. Pt states that she got sick with a virus and stopped taking her meds a couple of weeks ago, she was transferred at work, and she was overcharged on her rent contributing to increased depression with SI. Assessment What has happened this shift: Pt is still isolating to her room, she will spend time in bed or staring out the window. Pt does not want to engage and will barely answer questions. Pt is friendly but depressed and not wanting to engage. Pt denies si/hi, a/vh. All meds taken without issue. S/I, H/I: denies A/VH: Denies Sleep: See Sleep Assessment ADL's: Independent Group attendance: N/A Were meds taken: Yes Any med S/E: none reported nor observed Mental Status Exam Appearance: Slightly disheveled, wearing green scrubs Eye contact: fair Behavior: Isolative, Guarded Speech: Soft, Slow Mood: Depressed Affect: Flat Thought process: Linear Thought Content: unable to access Cognition: A&Ox4 Insight: poor to fair Judgment: poor Interventions PRN's used: None Therapeutic interventions: Maintained a safe and therapeutic environment, ensured contract for safety, provided clear and simple instructions, monitored behaviors and need for intervention, provided redirection and boundaries as needed, maintained structure and clear boundaries, and maintained Q 15min safety checks. Restraints/seclusion/emergency medication: N/A Justification of Continued Inpatient Treatment: Patient needs interruption of current crisis in a safe and therapeutic milieu until stable. Pt needs medication regimen re-established in order to be safely discharged. Today Ivy's inability to communicated due to her mental illness, this is blocking her ability to plan for a safe.
[2021-04-24 19:43] VITALS: BP 141/40
[2021-04-24] MEDS: atorvastatin 20mg tablet PO SCH (20:45)
[2021-04-24] MEDS: lamoTRIgine 25mg tablet PO SCH (20:45)
[2021-04-24] MEDS: ondansetron 4mg rapidly disintigrating tab PO PRN (20:46)
[2021-04-24] MEDS: traZODone 50mg tablet PO SCH (20:46)
[2021-04-24] MEDS: lamoTRIgine 100mg tablet PO SCH (20:46)
[2021-04-24] MEDS: voritoxetine HBr tablet 5 MG TABLET PO SCH (20:50)
--- NOTE | 2021-04-25 01:55 | NUR ---
Nursing Progress Note: Legal hold: 5250 for being a danger to herself Report received from Skye THOMAS with use of SBAR Why are they here: Pt presented to [facility] ER on 04/10/21 via EMS sent from [facility] for SI/DTS. Pt has a Hx of Bipolar, Type II & PTSD. Pt has a HX of 2 previous suicide attempts by overdosing on medication. Pt states that she got sick with a virus and stopped taking her meds a couple of weeks ago, she was transferred at work, and she was overcharged on her rent contributing to increased depression with SI. Assessment What has happened this shift: The patient isolated to her bed the entire evening. She was pleasant when approached for the evening assessment. The patient described her mood as "okay" She stated since admit her concentration and focus have improved. She denies thoughts to harm herself. She denies A/v hallucinations. She did make multiple physical complaints of nausea and vomiting. At HS she was given zofran but did have an emesis approximately 2 hours later. She also reports hand tremors which are fine tremors with hands extended and more course tremors with activity such as picking up her water pitcher. She reports feeling very fatigued and having leg cramps. She reports feeling dizzy and unsteady when she gets up. Ortho static vital signs= laying HR 71 and BP 127/72, sitting BP 81 and BP 142/92 and standing HR 95 and BP 118/80. The patient is on lithium and her last lithium level on 04/19/21 was 1.1. Discussed with credit charge authorizer who contacted provider and made him aware and ensure recommended. S/I, H/I: Denied A/VH: Denied Sleep: poor sleep ADL's: Independent Group attendance: no groups this shift Were meds taken: yes Any med S/E See above note Mental Status Exam Appearance: Obese middle aged woman with hair neatly pulled back Eye contact: WNL Behavior: See above note Speech: spontaneous with moderate rate and rhythm Mood: see above note Affect: Congruent to stated mood Thought process: logical and linear Thought Content: focused on physical symptoms Cognition: alert and oriented Insight: intact Judgment: intact Interventions PRN's used: see above note Therapeutic interventions: see above note Restraints/seclusion/emergency medication: NA Justification of Continued Inpatient Treatment: Medication stabilization continues.
--- NOTE | 2021-04-25 02:12 | NUR ---
Patient refused 2nd trazodone, ativan and offer of ensure
[2021-04-25] MEDS: sucralfate 1 gm tablet PO SCH ×4 (07:22→20:05)
[2021-04-25] MEDS: pantoprazole 40mg Tablet.DR PO SCH (07:22)
[2021-04-25] MEDS: levoTHYROXINE 125mcg tablet PO SCH (07:22)
[2021-04-25 08:00] VITALS: BP 151/92
[2021-04-25] MEDS: lithium carbonate 300mg SR tablet (LithoBID) PO SCH (08:00)
[2021-04-25] MEDS: linagliptin 5mg tablet PO SCH (08:05)
--- NOTE | 2021-04-25 09:34 | NUR ---
F/u 04/25: Pt PO 25% breakfast this AM however still refusing majority of meals past 14 days not meeting needs. Glucerna ONS TIDWM pending verification in EMR. Per PA note, pt hungry but also afraid to at given recent nausea though has been refusing meals past 2 weeks receiving PRN zofran. LBM 04/25. At this time given pt poor PO hx and 8kg wt loss since admit 6% UBW 2 weeks severe loss pt meets severe malnutrition criteria; PA notified. RD d/w RN regarding alternative nutrition options at this time given poor PO hx. Will continue to monitor. Rec: 1. continue regular diet; IF PO improves to at least 65% avg consistent intake consider carb controlled diet; encourage PO intake, offer snacks 2. [place] pt food preferences: dislikes milk, dairy, ham. Will send chocolate almond milk TIDWM, chocolate pudding/mousse WS, soups and sandwich BIDLD, and monteiro/eggs/potatoes WB 3. Glucerna TIDWM pending PA verification in EMR 4. bowel care per rx 5. weekly scaled wts 6. daily GLU checks given DM hx; last GLU check 04/15 7. IF within plan of care would benefit from supplemental EN to meet nutrition needs; IF TF Jevity 65ml/hr goal Addendum: 04/25/21 at [address] Amended: Links added.
--- NOTE | 2021-04-25 13:58 | NUR ---
Nursing Progress Note: Legal hold: 5250 for DTS Report received from Lindsey THOMAS with use of SBAR Why are they here: Pt presented to [facility] ER on 04/10/21 via EMS sent from [facility] for SI/DTS. Pt has a Hx of Bipolar, Type II & PTSD. Pt has a HX of 2 previous suicide attempts by overdosing on medication. Pt states that she got sick with a virus and stopped taking her meds a couple of weeks ago, she was transferred at work, and she was overcharged on her rent contributing to increased depression with SI. Assessment What has happened this shift: Pt was awake for breakfast which she agreed to eat in her room. Pt ate all of her potatoes, all her monteiro, and a few bites of her omelette. Pt stated that she really wanted to eat the coffee cake but didn't think her stomach would handle it. Pt denied any vomiting today though did report diarrhea and muscle cramps. Hand tremor noted especially with movement. Held pt's [place] this morning as her level came back high at 1.8. BI Hernández was notified and [place] was D/c'd. Pt refused lunch. Pt continues to be depressed but denied SI today. S/I, H/I: Pt denies. A/VH: Pt denies. Sleep: Pt slept 6.25 hours last night per noc shift report, pt napped for most of the day. ADL's: Independent Group attendance: No groups today Were meds taken: Yes Any med S/E: Nausea, diarrhea, hand tremors. Mental Status Exam Appearance: Obese dark haired, dark skinned younger appearing woman dressed in clean green hospital scrubs. Eye contact: Fair Behavior: Withdrawn, isolative to self and room. Speech: Clear, soft, minimal Mood: Depressed Affect: Flat,depressed Thought process: Linear Thought Content: Wanted to eat her coffee cake but her stomach didn't feel up for it. Cognition: A&Ox4 Insight: Fair Judgment: Fair Interventions PRN's used: None Therapeutic interventions: 1:1 assessment, encouraged pt to express her thoughts and feelings, therapeutic conversation, active listening, maintained a safe and therapeutic environment, ensured contract for safety, medication administration/education/monitoring, encouraged pt to eat meals and to come out of her room, provided encouragement and positive reinforcement, and maintained Q 15 minute safety checks. Restraints/seclusion/emergency medication: N/A Justification of Continued Inpatient Treatment: Pt in need of crisis interruption and medication adjustment and monitoring in a safe and therapeutic environment until stable and no longer a danger to self.
[2021-04-25] MEDS: voritoxetine HBr tablet 5 MG TABLET PO SCH (20:05)
[2021-04-25] MEDS: lamoTRIgine 25mg tablet PO SCH (20:06)
[2021-04-25] MEDS: atorvastatin 20mg tablet PO SCH (20:06)
[2021-04-25] MEDS: lamoTRIgine 100mg tablet PO SCH (20:06)
[2021-04-25] MEDS: traZODone 50mg tablet PO SCH (20:06)
[2021-04-25 20:16] VITALS: BP 139/85
--- NOTE | 2021-04-25 23:53 | NUR ---
Nursing Progress Note: Legal hold: 5250 for DTS Report received from WILLIAM Pizarro with use of SBAR Why are they here: Pt presented to [facility] ER on 04/10/21 via EMS sent from [facility] for SI/DTS. Pt has a Hx of Bipolar, Type II & PTSD. Pt has a HX of 2 previous suicide attempts by overdosing on medication. Pt states that she got sick with a virus and stopped taking her meds a couple of weeks ago, she was transferred at work, and she was overcharged on her rent contributing to increased depression with SI. Assessment What has happened this shift: Pt is brighter tonight. Pt reported that she was able to eat more today. Pt reports her nausea has resolved. Pt stated that she is being dcd tomorrow, when asked if she felt ready, she replied, I have a lot of things to take care of. When pressed further is she believes she is ready, outside of her responsibilities, she replied, I think so. All hs meds taken without issue. S/I, H/I: denies A/VH: Denies Sleep: See Sleep Assessment ADL's: Independent Group attendance: N/A Were meds taken: Yes Any med S/E: none reported nor observed Mental Status Exam Appearance: Slightly disheveled, wearing green scrubs Eye contact: fair Behavior: Isolative, Guarded Speech: Soft, Slow Mood: Depressed Affect: Flat Thought process: Linear Thought Content: unable to access Cognition: A&Ox4 Insight: poor to fair Judgment: poor Interventions PRN's used: None Therapeutic interventions: Maintained a safe and therapeutic environment, ensured contract for safety, provided clear and simple instructions, monitored behaviors and need for intervention, provided redirection and boundaries as needed, maintained structure and clear boundaries, and maintained Q 15min safety checks. Restraints/seclusion/emergency medication: N/A Justification of Continued Inpatient Treatment: Patient needs interruption of current crisis in a safe and therapeutic milieu until stable. Pt needs medication regimen re-established in order to be safely discharged. Today Ivy's inability to communicated due to her mental illness, this is blocking her ability to plan for a safe.
[2021-04-26] MEDS: pantoprazole 40mg Tablet.DR PO SCH (07:29)
[2021-04-26] MEDS: sucralfate 1 gm tablet PO SCH ×2 (07:29→11:59)
[2021-04-26] MEDS: levoTHYROXINE 125mcg tablet PO SCH (07:29)
[2021-04-26] MEDS: linagliptin 5mg tablet PO SCH (07:29)
[2021-04-26 08:19] VITALS: BP 133/88
[2021-04-26] MEDS ORDERED: LAMO100T2 PO (11:18)
[2021-04-26] MEDS ORDERED: LAMO25TA5 PO (11:18)
[2021-04-26] MEDS ORDERED: SUCR1TAB34 PO (11:18)
[2021-04-26] MEDS ORDERED: PANT40TA54 PO (11:18)
[2021-04-26] MEDS ORDERED: LINA5TAB4 PO (11:18)
--- NOTE | 2021-04-26 11:37 | NUR ---
Pt c/o right side pain and burning with urination, states she thinks she has an infection. BI Hernández notified and gave order for UA/C&S if indicated.
--- NOTE | 2021-04-26 11:46 | NUR ---
UA collected via clean catch and sent.
[2021-04-26 11:59] LABS: CLARITY,URINE CLOUDY (Clear); COLOR,URINE YELLOW (Yellow); GLUCOSE, URINE NEGATIVE (Neg); KETONES,URINE TRACE mg/dl (Neg); LEUKOCYTE ESTERASE ,URINE NEGATIVE (Neg); NITRITES, URINE NEGATIVE (Neg); OCCULT BLOOD,URINE TRACE-INTACT (Neg); PH,URINE 6.5 (4.8-8.0); PROTEIN,URINE 100 mg/dl (Neg)
[2021-04-26 12:10] LABS: UA COLLECTION TYPE CLN CATCH MIDSTREAM
[2021-04-26 12:11] LABS: BACTERIA,URINE 3+ /HPF (Neg); SQUAMOUS EPITHELIAL CELL,UR MANY /LPF (FEW)
[2021-04-26 12:12] LABS: RBC,URINE 0-2 /HPF (0-2)
[2021-04-26 12:13] LABS: TRANSITIONAL EPI CELLS,URINE FEW /HPF
[2021-04-26 12:15] LABS: MUCUS STRANDS MANY /LPF (Neg)
[2021-04-26 12:17] LABS: RENAL CELLS, URINE FEW /HPF
--- NOTE | 2021-04-26 17:20 | NUR ---
DISCHARGE NOTE: Pt was discharged home at 1700. Her ride picked her up. Pt ambulated off the unit with PCT, all belongings were returned. Pt expressed understanding of her discharge instructions including her Rx's and follow up care.
== END 2021-04-26 17:00 | disposition home or self-care (01) | DRG 885 ==
LOC: ADULT MH 16:40
PROVIDERS: ADMIT Psychiatry & Neurology Psychiatry; ATTEND Psychiatry & Neurology Psychiatry
DX: F33.2 Major depressive disorder, recurrent severe without psychotic features (principal); Z68.41 Body mass index [BMI] 40.0-44.9, adult; E03.9 Hypothyroidism, unspecified; E11.9 Type 2 diabetes mellitus without complications; E66.01 Morbid (severe) obesity due to excess calories; E78.5 Hyperlipidemia, unspecified; F41.9 Anxiety disorder, unspecified; I10 Essential (primary) hypertension; Z79.84 Long term (current) use of oral hypoglycemic drugs; Z79.890 Hormone replacement therapy; Z79.899 Other long term (current) drug therapy; Z90.49 Acquired absence of other specified parts of digestive tract; Z91.5 Personal history of self-harm; Z20.822 Contact with and (suspected) exposure to COVID-19
CPT/HCPCS: 36415; 80061; 80178; 81001; 82948; 83036; 87081

== ENCOUNTER 2022-01-02 14:59 | Emergency (ER) | payer BC, MEDICAID ==
[~2022-01-02] VITALS: Ht 177.8 cm; Wt 140.8 kg
[~2022-01-02 14:59] MED LIST changes: -LAMO100T PO; +LAMO100T2 PO; +LAMO25TA5 PO; +LINA5TAB4 PO; -LIT300C PO; -NABU-139 PO; +PANT40TA54 PO; +SUCR1TAB34 PO
[2022-01-02 16:02] LABS: BASOPHILS # (AUTO) 0.1 X10'3 (0-0.2); BASOPHILS % (AUTO) 0.6 % (0-1); EOSINOPHILS # (AUTO) 0.2 X10'3 (0-0.9); EOSINOPHILS % (AUTO) 2.4 % (0-6); HEMATOCRIT 35.9 % (35.0-45.0); LYMPHOCYTES % (AUTO) 29.7 % (21-51); MEAN CORPUSCULAR HEMOGLOBIN 26.8 PG (27.0-31.0); MEAN CORPUSCULAR HGB CONC 33.3 g/dL (33.0-36.5); MEAN CORPUSCULAR VOLUME 80.6 FL (78-98); MEAN PLATELET VOLUME 7.8 FL (7.4-10.4); MONOCYTES # (AUTO) 0.5 X10'3 (0-0.9); MONOCYTES % (AUTO) 5.3 % (2-12); NEUTROPHILS # (AUTO) 6.3 X10'3 (1.8-7.7); PLATELET COUNT 291 X10'3 (140-440); RED BLOOD COUNT 4.45 X10'6 (4.20-5.60); RED CELL DISTRIBUTION WIDTH 15.6 % (11.5-14.5); WHITE BLOOD COUNT 10.1 X10'3 (4.5-11.0)
[2022-01-02 16:27] LABS: ALANINE AMINOTRANSFERASE 57 U/L (12-78); ALBUMIN 3.4 G/DL (3.4-5.0); ALBUMIN/GLOBULIN RATIO 0.7 (1.1-1.5); ALKALINE PHOSPHATASE 95 IU/L (46-116); ANION GAP 14 (8-16); ASPARTATE AMINO TRANSFERASE 48 U/L (10-37); BILIRUBIN,TOTAL 0.2 MG/DL (0.1-1.0); BLOOD UREA NITROGEN 10 MG/DL (7-18); BUN/CREATININE RATIO 18.2 (6.6-38.0); CALCIUM 9.1 MG/DL (8.5-10.1); CHLORIDE 102 MMOL/L (99-107); CREATININE 0.55 MG/DL (0.40-0.90); GLUCOSE 193 MG/DL (70-104); SODIUM 140 MMOL/L (135-145); TOTAL PROTEIN 8.1 G/DL (6.4-8.2); eGFR > 90 ML/MIN
[2022-01-02] MEDS ORDERED: LORazepam 1 MG tablet PO ONE (16:40)
[2022-01-02 17:26] VITALS: BP 132/87
== END 2022-01-02 17:29 | disposition home or self-care (01) ==
LOC: ER 14:59
DX: F41.9 Anxiety disorder, unspecified (principal); R07.89 Other chest pain; F32.A Depression, unspecified; Z88.5 Allergy status to narcotic agent; Z91.013 Allergy to seafood; Z79.899 Other long term (current) drug therapy
CPT/HCPCS: 36415; 71045; 80053; 83880; 84484; 85025; 93005; 99285

== ENCOUNTER 2022-03-03 12:41 | Emergency (ER) | payer BC, MEDICAID ==
[~2022-03-03] VITALS: Ht 177.8 cm; Wt 136.4 kg
[2022-03-03 12:52] VITALS: BP 137/91
[2022-03-03] MEDS ORDERED: ketorolac trometh inj. 60 MG/2 ML VIAL IM ONE (13:50)
[2022-03-03] MEDS ORDERED: ORPH100T2 PO (14:13)
[2022-03-03] MEDS ORDERED: NAPR-56 PO (14:13)
[2022-03-03] MEDS ORDERED: PRED10TA23 PO (14:13)
== END 2022-03-03 14:39 | disposition home or self-care (01) ==
LOC: ER 12:41
DX: G89.29 Other chronic pain (principal); D89.89 Other specified disorders involving the immune mechanism, not elsewhere classified; M54.32 Sciatica, left side; M54.2 Cervicalgia; F41.9 Anxiety disorder, unspecified; F32.A Depression, unspecified; Z88.5 Allergy status to narcotic agent; Z91.013 Allergy to seafood; Z79.899 Other long term (current) drug therapy
CPT/HCPCS: 72040; 96372; 99283; J1885

== ENCOUNTER 2022-03-10 17:04 | Emergency (ER) | payer BC, MEDICAID ==
[~2022-03-10] VITALS: Ht 177.8 cm; Wt 136.4 kg
[~2022-03-10 17:04] MED LIST changes: +NAPR-56 PO; +ORPH100T2 PO; +PRED10TA23 PO
[2022-03-10 17:09] VITALS: BP 147/90
== END 2022-03-10 18:22 | disposition home or self-care (01) ==
LOC: ER 17:04
DX: M54.42 Lumbago with sciatica, left side (principal); R20.0 Anesthesia of skin; Z88.5 Allergy status to narcotic agent; Z91.013 Allergy to seafood; Z79.899 Other long term (current) drug therapy
CPT/HCPCS: 99281